=== PATIENT | male | born 1935 | race Caucasian/White ===

== ENCOUNTER 2018-10-18 11:02 | Outpatient (CLI) | payer MEDICARE, OTHER, SELFPAY ==
[2018-10-18 11:51] LABS: HGB 15.8 g/dL (13.5-17.5); Mean Corp. HGB Concentration 32.9 g/dL (32.0-36.0); Mean Corpuscular Hemoglobin 28.2 pg (27.0-33.0); Mean Corpuscular Volume 85.7 fL (80-95); Mean Platelet Volume 9.9 fL (8.0-11.0); Platelet Count 302 x1000/uL (130-400); RBC Distribution Width 13.7 % (11.8-14.1); White Blood Cell Count 7.75 k/cumm (4.4-10.8)
[2018-10-18 13:08] LABS: ALT 12 U/L (12-78); AST 18 U/L (15-37); Albumin 3.5 g/dL (3.4-5.0); Alkaline Phosphatase 157 U/L (46-116); Anion Gap 11.2 mmol/L (3-11); BUN 11 mg/dL (7-18); Bilirubin, Total 0.7 mg/dL (0.2-1.0); CO2 27.8 mmol/L (21.0-32.0); CREATININE 1.09 mg/dL (0.70-1.30); Calcium 8.8 mg/dL (8.5-10.1); Chloride 103 mmol/L (98-107); Glucose 96 mg/dL (70-100); Potassium 4.1 mmol/L (3.5-5.1); Sodium 142 mmol/L (136-145); Total Protein 6.7 g/dL (6.4-8.2)
[2018-10-18 16:49] LABS: GGT 58 U/L (15-85)
== END 2018-10-18 11:22 ==
PROVIDERS: PCP Family Medicine; Visit Provider Family Medicine
DX: F32.9 Major depressive disorder, single episode, unspecified (principal); I10 Essential (primary) hypertension; R74.8 Abnormal levels of other serum enzymes
CPT/HCPCS: 36415; 80053; 85027; 82977

== ENCOUNTER 2019-10-20 11:56 | Outpatient (CLI) | payer MEDICARE, OTHER, SELFPAY ==
[2019-10-20 13:43] LABS: ALT 10 U/L (16-63); AST 16 U/L (15-37); Albumin 3.4 g/dL (3.4-5.0); Alkaline Phosphatase 140 U/L (46-116); Anion Gap 10.7 mmol/L (3-11); BUN 16 mg/dL (7-18); Bilirubin, Total 1.1 mg/dL (0.2-1.0); CO2 27.3 mmol/L (21.0-32.0); CREATININE 1.14 mg/dL (0.70-1.30); Calcium 8.8 mg/dL (8.5-10.1); Chloride 105 mmol/L (98-107); Glucose 97 mg/dL (74-106); Potassium 4.4 mmol/L (3.5-5.1); Sodium 143 mmol/L (136-145); Total Protein 6.8 g/dL (6.4-8.2)
== END 2019-10-20 12:16 ==
PROVIDERS: PCP Family Medicine; Visit Provider Family Medicine
DX: I10 Essential (primary) hypertension (principal)
CPT/HCPCS: 36415; 80053

== ENCOUNTER 2020-05-14 12:12 | Emergency (ER) | payer MEDICARE, OTHER, SELFPAY ==
[2020-05-14 12:18] VITALS: BP 155/36; PULSE 83; RESP 18; TEMP 37.2; O2SAT 95
[2020-05-14 12:26] VITALS: RESP 18
--- NOTE | 2020-05-14 12:45 | DI.CT_ITS ---
EXAM: CT HEAD WO CLINICAL HISTORY: Mechanical fall 2 over the past 3 days,struck head. TECHNIQUE: Imaging Protocol: Axial computed tomography images with coronal and sagittal reformatted images were created and reviewed COMPARISON: CT HEAD WITHOUT CONTRAST from 11/08/2016 FINDINGS: Ventricles and Extra axial spaces: Normal in size and morphology for the patient's age. Hemorrhage: None. Cerebral parenchyma: Mild atrophy. Mild white matter changes consistent with small vessel disease. Midline shift: None. Brainstem/Cerebellum: Normal. Calvarium: Normal. Visualized Paranasal sinuses/Mastoids: There is complete opacification of the frontal and sphenoid si nuses and near complete opacification of the ethmoid sinuses. There is mucous retention in the right maxillary sinus and mild mucosal thickening of the left maxillary sinus. The mastoid air cells are clear. IMPRESSION: Severe sinus disease. No acute intercranial abnormality. RADIATION DOSE DELIVERED: 897.16mGy.cm Total DLP 897.16mGy.cm Total DLP DATA REPOSITORY: All CT scans at this facility are submitted to the National Radiology Data Registry (NRDR) Dose Index Registry (DIR) with the [employer] (A[employer]). RADIATION OPTIMIZATION: All CT scans at this facility use at least one of these dose optimization te chniques: automated exposure control; mA and/or kV adjustment per patient size (includes targeted exa ms where dose is matched to clinical indication); or iterative reconstruction.
--- NOTE | 2020-05-14 13:17 | CMPROGNOTE_ITS ---
- If Service Date Differs Date of service: 05/14/20 Time of Service: 13:17 Care Management Progress Note S/O: Roshan is an 84 year old male who lives in [place], [place], with his daughter, Merced, 6 dogs and a parakeet. He shares his daughter is a dog or horse racing official and this is the reason why they have so many dogs at home. He reports being independent with his ADLs, but he no longer drives. He states he buys the food and Merced cooks the meals. She also drives him to appointments. Roshan is retired but formerly worked 30 years in [place], [place], at the [employer]. 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 Roshan reports doing well at home and declines an offer of in-home services or the need for medical equipment, such as a walker. A: Roshan presents in the ED today after experiencing two mechanical falls at home. P: Anticipate Roshan will be discharged home when medically cleared by provider. He will follow-up with his PCP and plan of care as directed.
--- NOTE | 2020-05-14 13:28 | ED.GENADUL_ITS ---
Discharge Plan Disposition Patient Disposition: HOME Condition: Stable Discharge Details Chief Complaint: GenMedical Clinical Impression: Fall, BEA (acute kidney injury), Dehydration Primary Care Provider: Tyler Baez ED Provider: Fabricio Espino Home Meds and New Rx's Prescriptions: Continued amlodipine 10 mg tablet 10 mg PO DAILY Qty: 180 RF: 2 mirtazapine 30 mg tablet 30 mg PO HS Qty: 90 RF: 3 Discharge Instructions Instructions: Dehydration (ED), Fall Prevention (ED) Additional Instructions: At this time the work-up in the ER does not reveal any obvious emergent process. As we discussed your laboratory values do reveal that you are dehydrated however you have declined IV hydration, further observation here in the ER, repeat laboratory values. I also had our care management team talk with you regarding other home resources but you have declined their services. You do not believe you need PT, a walker, or cane. I cannot stress the importance of contacting your primary care provider later today or tomorrow for prompt outpatient reevaluation. Please increase your fluid intake. Watch for new or worsening symptoms and return to the ER for any concerns. Discharge Data Discharge Date/Time-TO BE ENTERED AT DEPARTURE: 05/14/20 15:38 Medical Decision Making This is a 84-year-old gentleman with history of mood disorder, hypertension, depression presents to the ER today reporting 2 falls over the past 3 days. Both falls were mechanical in nature, 1 was caused getting caught up in a dog leash, the other caused while trying to balance and take off his shoes. He denies any balance issues. He denies any injury from the falls. Denies head ache, loss of consciousness, visual changes, neck pain, pain in his extremities. Patient is awake, alert, able to have a normal conversation. He initially tells me that he would rather not have a work-up completed as he does not believe that there is anything wrong. Given his presentation with 2 falls both striking his head, I do believe that obtaining head CT is reasonable to rule out skull fracture and/or intracranial process. The falls did not seem to have any association with ataxia, less concern for a posterior CVA or TIA. There is not appear to be any distracting injuries. I discussed this with the patient and he is agreeable to minimally having a head CT performed. After I spoke with the patient's daughter, learning that he has had a declining cognitive state over the past few weeks, increased state of being disheveled, I would like to obtain routine laboratory values and urinalysis if the patient is agreeable. Patient is agreeable to having a CBC, CMP, urinalysis obtained. He would prefer a straight stick and not an IV. CT reveals no acute intracranial process per radiology. Laboratory values reveal a white blood cell count of 8.93 hemoglobin 12.8 hematocrit 38.8 platelet count 335. Potassium 3.3 chloride 109,, dioxide 19.9 anion gap 16.1 BUN 30, creatinine 1.42. His GFR is 47.73 which does appear to be slightly lower than his baseline. Calcium is 7.5 urinalysis reveals 80 ketones. I discussed these findings with patient. He admits that he does not drink as much as he should and will drink more but does not want an IV and wants to be discharged. He is slightly dehydrated but is able to tolerate p.o. fluids. I discussed the patient's presentation, laboratory values, with Dr. Smith. Patient is awake, alert, oriented to self, location, date, situation, able to make his own decisions. He does appear to be slightly dehydrated but in no obvious distress or acute emergent process. Obviously we cannot force the patient to receive IV fluid and if he wants to be discharged he has the capacity to do so. The patient is homebound and I do believe that he would benefit from a social services coordinator consultation as well as physical therapy and home health. I spoke with patient's daughter, Fina, prior to discharge. She understands that the patient does not want to wait in the ER any longer, does not want to receive IV fluids. She is his sole home caregiver and feels as though additional resources would be greatly beneficial. He did initially decline any additional home resources but after talking with his daughter who feels as though they would be beneficial, he is at least open to the idea. I did asked that our care management team personally reach out to her as well to see what resources may be beneficial. She will take him home in his current condition and be sure that he follows up with his primary care provider. Encouraged to return to the ER for new or worsening symptoms. Upon discharge patient was able to ambulate stebuster mccarthy. HPI General Date/Time Provider Initiated Documentation: 05/14/20 12:28 . Limitations to Documentation: no limitations . Information obtained by: patient . HPI Narrative: This is an 84-year-old gentleman with history of depression, hypertension, mood disorder, not anticoagulated, presenting for evaluation because of recent falls. He reports that 3 days ago he was outside with his dogs, got tangled up in the leashes, had a mechanical fall forward striking his forehead. Denies LOC, headache, neck pain or other injuries. Yesterday when coming in after taking his dogs outside, he was trying to balance and take off 1 of his shoes, lost his balance and fell once again striking his head. Denies injury from that fall. He reports that he lives at home with his daughter and does not believe that he needs any additional resources. He ambulates on his own without any assistive devices. He reports that the falls were mechanical and does not believe that he would require any physical therapy or assisted devices for ambulation. He is currently asymptomatic. Denies headache, visual changes, neck pain, chest pain, shortness of breath, numbness, tingling, weakness, nausea, vomiting, incontinence. The patient's daughter, Fina Sheikh, home phone number [phone]. She believes that there has been a cognitive decline over the past several weeks. And then on top of the 2 falls over the past 3 days she is concerned. She contacted his primary care provider 3 days ago after the initial fall however the patient refused to go to the ER at that time. She is his primary pooling operator. Related Data Home Medications Medication Instructions Recorded Confirmed amlodipine 10 mg tablet 10 mg PO DAILY #180 tab 11/24/19 05/14/20 mirtazapine 30 mg tablet 30 mg PO HS #90 tab-cap 12/15/19 05/14/20 Previous Rx's Medication Instructions Recorded amlodipine 10 mg tablet 10 mg PO DAILY #180 tab 11/24/19 mirtazapine 30 mg tablet 30 mg PO HS #90 tab-cap 12/15/19 Allergies Allergy/AdvReac Type Severity Reaction Status Date / Time lamotrigine [From Lamictal] Allergy Intermediate Skin Rash Unverified 05/14/20 12:26 General Stated Complaint: GenMedical BRYAN: 3 Review of Systems Constitutional Constitutional: Reports fatigue, Denies fever(s) and Denies headache(s) Eyes Eyes: Denies change in vision ENT Ears, Nose, Mouth, and Throat: Denies vertigo, Denies dizziness, Denies headache(s) and Denies neck pain Cardiovascular Cardiovascular: Denies chest pain, Denies syncope and Denies dyspnea Respiratory Respiratory: Denies dyspnea Gastrointestinal Gastrointestinal: Denies abdominal pain, Denies nausea and Denies vomiting Genitourinary Genitourinary: Denies dysuria Musculoskeletal Musculoskeletal: Denies back pain, Denies neck pain and Denies tingling Integumentary/Breasts Skin/Breast: Denies rash Neurologic Neurologic: Denies vertigo, Denies dizziness, Denies syncope, Denies headache(s) and Denies tingling Endocrine Endocrine: Reports fatigue [facility] Social History Smoking/Tobacco Use Status: Never Alcohol Intake: former Drug use: Never Substance use type: does not use Do you feel safe at home: Yes Exam Const General: cooperative, healthy appearing, comfortable, no acute distress and disheveled Orientation: alert, awake and oriented x3 HENCT Head: no palpable skull fracture, normocephalic and other (Abrasion, right forehead) Face and sinus: normal facial exam Mouth: moist mucous membranes abnormal (Slightly dry oral mucosa) Throat: posterior oropharynx normal Eyes General: appearance normal, both eyes and all related structures Alignment and Position: alignment normal Periorbital: periorbital findings normal Eyelids: eyelids normal Conjunctivae: conjunctivae normal Sclera: sclerae normal Cornea: corneas normal Pupils: PERRL EOM: EOM intact bilaterally Direct ophthalmoscopy: normal light reflex Neck Neck: normal visual inspection, full ROM, trachea midline, supple and nontender Chest Chest: normal palpation of entire chest wall Resp Effort & Inspection: normal respiratory effort and able to speak in complete sentences Auscultation: clear to auscultation bilaterally Cardio Rate: regular rate Rhythm: regular rhythm GI Inspection: normal to inspection Palpation: soft, not firm, no guarding and nontender Auscultation: normal bowel sounds Back/Spine/Pelvis Back: No back tenderness Skin General skin exam: no rashes or lesions noted Neuro General: patient alert, patient awake, patient oriented x3, moves all extremities and no focal motor deficits Cranial Nerves: CN's II-XI intact bilaterally Cognition: normal cognition Speech: speech normal Gait: normal gait Motor: muscle tone normal throughout and strength 5/5 throughout Sensory Exam: no sensory deficits noted Extrem General: full ROM, capillary refill normal, no pedal edema (1+ bilaterally, patient reports this is baseline) and no calf tenderness Psych Appearance: grossly normal Mental Status: mental status grossly normal Speech and Movement: speech and movement normal Affect: normal affect Attitude: cooperative Course Vital Signs Vital signs: Vital Signs Temperature 37.2 C 05/14/20 12:18 Pulse 83 05/14/20 12:18 Respiratory Rate 18 05/14/20 12:18 Blood Pressure 155/36 H 05/14/20 12:18 Pulse Oximetry 95 05/14/20 12:18 Temperature 37.2 C 05/14/20 12:18 Temperature Source Temporal Artery Scan 05/14/20 12:18 Pulse 83 05/14/20 12:18 Respiratory Rate 18 05/14/20 12:26 Respiratory Effort Non-Labored 05/14/20 12:26 Respiratory Depth Normal 05/14/20 12:26 Respiratory Pattern Normal 05/14/20 12:26 Blood Pressure 155/36 H 05/14/20 12:18 Blood Pressure Position Supine 05/14/20 12:18 Pulse Oximetry 95 05/14/20 12:18 Oxygen Delivery Method Room Air 05/14/20 12:18 Oxygen Flow Rate 0 05/14/20 12:18 Pain Level 0 05/14/20 12:18
[2020-05-14 14:13] LABS: Abs Immature Grans 0.03 k/cumm (0.0-0.09); Absolute Basophil Count 0.02 k/cumm (0.0-0.2); Absolute Eosinophil Count 0.14 k/cumm (0.0-0.7); Absolute Lymphocyte Count 1.44 k/cumm (1.2-3.4); Absolute Monocyte Count 0.81 k/cumm (0.11-0.7); Absolute Neutrophil Count 6.49 k/cumm (1.2-6.7); Basophils % 0.2; Eosinophils % 1.6; HCT 38.8 % (40.0-50.0); HGB 12.8 g/dL (13.5-17.5); Immature Grans % 0.3 %; Lymphocytes % 16.1; Mean Corpuscular Hemoglobin 28.5 pg (27.0-33.0); Mean Corpuscular Volume 86.4 fL (80-95); Mean Platelet Volume 10.4 fL (8.0-11.0); Monocytes % 9.1; Neutrophils % 72.7; Platelet Count 335 x1000/uL (130-400); RBC 4.49 m/cumm (4.50-6.00); White Blood Cell Count 8.93 k/cumm (4.4-10.8)
[2020-05-14 14:20] LABS: Bilirubin Negative (Negative); Blood Negative (Negative); Clarity Clear (Clear); Glucose Negative (Negative); Ketones 80 mg/dL (Negative); Leukocyte Esterase Negative (Negative); Nitrite Negative (Negative); Specific Gravity >= 1.030 (1.005-1.025); Urobilinogen 0.2 EU/dL (Up TO 0.2); pH 5.5 (5-8)
[2020-05-14 14:29] LABS: ALT 11 U/L (16-63); AST 34 U/L (15-37); Albumin 3.1 g/dL (3.4-5.0); Alkaline Phosphatase 106 U/L (46-116); Anion Gap 16.1 mmol/L (3-11); BUN 30 mg/dL (7-18); Bilirubin, Total 0.4 mg/dL (0.2-1.0); CO2 19.9 mmol/L (21.0-32.0); CREATININE 1.42 mg/dL (0.70-1.30); Calcium 7.5 mg/dL (8.5-10.1); Chloride 109 mmol/L (98-107); Estimated GFR 47.73 (mL/min/1.73m2); Glucose 84 mg/dL (74-106); Potassium 3.3 mmol/L (3.5-5.1); Sodium 145 mmol/L (136-145); Total Protein 6.3 g/dL (6.4-8.2)
== END 2020-05-14 15:38 | disposition home or self-care (01) ==
PROVIDERS: Emergency Provider Physician Assistant; PCP Family Medicine
DX: S09.90XA Unspecified injury of head, initial encounter (principal); W19.XXXA Unspecified fall, initial encounter; E86.0 Dehydration; N17.9 Acute kidney failure, unspecified; R41.81 Age-related cognitive decline; I10 Essential (primary) hypertension
CPT/HCPCS: 36415; 80053; 99284; 70450; 81003; 85025

== ENCOUNTER 2022-01-06 15:17 | Outpatient (REF) | payer MEDICARE, OTHER, SELFPAY ==
[2022-01-06 18:49] LABS: HCT 45.2 % (40.0-50.0); HGB 14.4 g/dL (13.5-17.5); MCH 27.8 pg (27.0-33.0); MCHC 31.9 % (32.0-36.0); MCV 87.3 fL (80-95); MPV 10.7 fL (8.0-11.0); Platelet Count 298 10^3/uL (130-400); RBC 5.18 10^6/uL (4.36-5.78); RDW 13.6 % (11.8-14.1); WBC 7.48 10^3/uL (4.4-10.8)
[2022-01-06 18:51] LABS: ALT 27 U/L (16-63); AST 23 U/L (15-37); Albumin 3.8 g/dL (3.4-5.0); Alkaline Phosphatase 155 U/L (46-116); BUN 19 mg/dL (7-18); Bilirubin, Total 0.8 mg/dL (0.2-1.0); CREATININE 1.1 mg/dL (0.70-1.30); Calcium 8.8 mg/dL (8.5-10.1); Chloride 107 mmol/L (98-107); Glucose 86 mg/dL (74-106); Sodium 144 mmol/L (136-145); TSH (W/Ref FT4) 2.36 uIU/mL (0.36-3.74); Total Protein 6.9 g/dL (6.4-8.2)
== END 2022-01-06 15:18 | disposition home or self-care (01) ==
LOC: LBN 15:17
PROVIDERS: PCP Family Medicine; Visit Provider Family Medicine
DX: D64.9 Anemia, unspecified (principal); F32.9 Major depressive disorder, single episode, unspecified; I10 Essential (primary) hypertension; R63.4 Abnormal weight loss
CPT/HCPCS: 80053; 85027; 84443

== ENCOUNTER 2023-03-20 11:19 | Emergency (ER) | payer MEDICARE, OTHER, SELFPAY ==
[2023-03-20 11:24] VITALS: BP 114/61; PULSE 83; RESP 14; O2SAT 97
== END 2023-03-20 14:13 | disposition left against medical advice (07) ==
LOC: ER 11:35
PROVIDERS: PCP Family Medicine
DX: S91.311A Laceration without foreign body, right foot, initial encounter (principal); Z53.21 Procedure and treatment not carried out due to patient leaving prior to being seen by health care provider

== ENCOUNTER 2023-11-15 09:53 | Emergency (ER) | payer MEDICARE, OTHER, SELFPAY ==
[2023-11-15 09:57] VITALS: BP 136/69; PULSE 91; RESP 18; TEMP 37.1; O2SAT 99
--- NOTE | 2023-11-15 10:12 | W.ED.GENAD ---
HPI General Stated Complaint: Orthopedic BRYAN: 4 Date/Time Provider Initiated Documentation: 11/15/23 09:57. Limitations to Documentation: no limitations. Information obtained by: patient. History of Present Illness left shoulder pain moderate aching left and upper extremity reports no radiation day(s) (1) constant Rest improves symptom(s), Movement worsens symptoms denies denies other symptoms none Related Data Home Medications Medication Instructions Recorded Confirmed amlodipine 10 mg tablet 10 mg PO DAILY #90 tabs 10/09/23 11/15/23 mirtazapine 30 mg tablet 30 mg PO HS #90 tab-caps 10/09/23 11/15/23 Previous Rx's Medication Instructions Recorded amlodipine 10 mg tablet 10 mg PO DAILY #90 tabs 10/09/23 mirtazapine 30 mg tablet 30 mg PO HS #90 tab-caps 10/09/23 Allergies Allergy/AdvReac Type Severity Reaction Status Date / Time lamotrigine [From Lamictal] Allergy Intermediate Skin Rash Unverified 11/15/23 09:59 Review of Systems All systems reviewed & are unremarkable except as noted in HPI and below Constitutional Constitutional: Denies chills, Denies fever(s) and Denies weakness Cardiovascular Cardiovascular: Denies chest pain and Denies dyspnea Respiratory Respiratory: Denies cough and Denies dyspnea Gastrointestinal Gastrointestinal: Denies abdominal pain, Denies nausea and Denies vomiting Integumentary/Breasts Skin/Breast: Denies rash Neurologic Neurologic: Denies weakness PFSH All Active Problems (Updated 11/15/23 @ 12:51 by Roldan Lovelace MD) Dislocation of shoulder, left, closed (Acute) Facial lesion (Acute) Heart murmur (Acute) 01/2022-systolic loudest at upper sternal border, consistent with modest left ear-patient declines further evaluation Depression (Chronic) HTN (hypertension) (Chronic) Mood disorder (Acute) Epistaxis (Acute 12/07/17) Social History (Updated 10/17/23 @ 19:09 by Enedelia Pace) Smoking/Tobacco Use Status: Never Second Hand Exposure: No Smoking risk assessment performed?: Yes Alcohol Intake: never Drug use: Never Substance use type: does not use Adopted: No Caregiver/Support person: No Foster care: No Household members: other Details: adult child Number of Children: 0 number of grandchildren: 0 Communication Needs: Hard of Hearing Education Level: other Details: PhD Do you need help understanding health information?: Never 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 Pets and animals: Yes Pets and animals: dog(s) Sexually active: No Current gender identity: male What is your relationship status?: refused to answer How often do you talk on the phone with friends or family?: never How often do you get together with friends or relatives?: never How often do you attend restorationist or spiritism services?: decline to answer Do you belong to any clubs or organized social groups?: no Panel score (0-1 are the most socially isolated patients): 0 What type of physical activity do you participate in: walking Duration: 60-90 minutes/day Frequency: daily Special kenyon needs: No Agree to transfusion: Yes Seatbelt use: always Helmet use: No Drive intox or ride w/intox [employer] company driver: No Working smoke detector in home: No Carbon monox detector in home: No Firearms in home: Yes Firearms unloaded and locked: Yes Do you feel safe at home: Yes Do you feel safe in your relationship?: Yes Victim of physical abuse: No Victim of emotional abuse: No Victim of sexual abuse: No Would you like helpful sources: No Exam Const General: no acute distress Orientation: alert HENMT Head: normal to inspection Ears: external ears normal General nose exam: external nose normal Mouth: moist mucous membranes Eyes General: appearance normal, both eyes and all related structures Neck Neck: normal visual inspection Chest Chest: no tenderness Resp Effort & Inspection: normal respiratory effort and able to speak in complete sentences Auscultation: clear to auscultation bilaterally Cardio Jugular venous pressure: no JVD Rate: regular rate GI Palpation: soft and nontender Skin General skin exam: no rashes or lesions noted Neuro General: patient alert and patient oriented x3 Extrem General: capillary refill normal Psych Mental Status: mental status grossly normal Course Vital Signs Vital signs: Vital Signs Temperature 37.1 C 11/15/23 09:57 Pulse 91 H 11/15/23 09:57 Respiratory Rate 18 11/15/23 09:57 Blood Pressure 136/69 11/15/23 09:57 Pulse Oximetry 99 11/15/23 09:57 Temperature 37.1 C 11/15/23 09:57 Temperature Source Temporal Artery Scan 11/15/23 09:57 Pulse 91 H 01/11/24 09:57 Respiratory Rate 18 11/15/23 09:57 Respiratory Effort Normal, Non-Labored 11/15/23 10:00 Blood Pressure 136/69 11/15/23 09:57 Blood Pressure Position Sitting 11/15/23 09:57 Pulse Oximetry 99 11/15/23 09:57 Oxygen Delivery Method Room Air 11/15/23 09:57 Oxygen Flow Rate 0 11/15/23 09:57 Procedures Procedural Sedation Indication: fracture/dislocation reduction ASA Class: II Time of Last PO Intake: 19:00 Preparation: machine stapler applied, pulse oximeter, capnometry used and supplemental O2 applied Fentanyl: IV Fentanyl dose (mcg): 50 IV Propofol dose (mg): 60 Patient Tolerated Procedure: well Complications: none Medical Decision Making 87 yo male with hx of htn and mood disorder who comes in with cc of left shoulder pain. HE states yesterday he was walking and slipped on ice and landed on her left shoulder. Denies loc and no preceding symptoms such as chest pain, dyspnea, dizziness. HE has pain in the left lateral shoulder since so came here. He has no signs of trauma to the head, caox4 speaking clearly. He has no midline c/t/l spine tenderness, no chest or abdomen tenderness. HE has limited rom of the shoulder due to pain and has tenderness over the anterior and lateral shoulder, no pain in the mid to distal humerus, elbow, forearm, wrist or hand with intact sensation and pulses. Suspect proximal humerus fracture will obtain xrays and reassess. No pain in the legs and bearing weight. xray shows anterior shoulder dislocation, pt stable. He consents to sedation, Dr. Chamberlain will assist. patient caox4 speaking clearly, second xray shows successful reduction. Stable for d/c, will f/u with ortho and return precautions given Differential Diagnosis Differential Diagnosis: fracture, dislocation, contusion Imaging Data Radiologic Study: Attestation: I personally reviewed and interpreted this imaging study as follows: Imaging: X-Ray My impression: anterior shoulder dislocation Radiologic Study #2: Attestation: I personally reviewed and interpreted this imaging study as follows: Imaging: X-Ray My impression: successful reduction Quality:SDOH Health Related Social Needs: No Data to Display Discharge Plan Disposition Patient Disposition: Home Condition: Stable Discharge Details Clinical Impression: Dislocation of shoulder, left, closed Primary Care Provider: Miguelito Conteh ED Provider: Roldan Lovelace [place] Meds and New Rx's Prescriptions: Continued amlodipine 10 mg tablet 10 mg PO DAILY Qty: 90 3RF mirtazapine 30 mg tablet 30 mg PO HS Qty: 90 3RF Rx Instructions: fill for #90 every 3 months Discharge Instructions Instructions: Shoulder Dislocation (ED) Additional Instructions: you had a shoulder dislocation and were given sedation to reduce it call orthopedics tomorrow to arrange for follow up if you feel more ill, have severe worsening pain or new pain such as chest pain return to the emergency department Referrals: Tony Chamberlain MD [ [facility] STAFF PHYSICIAN] -
[2023-11-15] MEDS: Acetaminophen 500 MG TAB 1000 MG PO (10:29)
--- NOTE | 2023-11-15 10:43 | DI.RAD_ITS ---
Exam(s) XR SHOULDER LT COMPLETE 2+V EXAM: XR SHOULDER LT COMPLETE 2+V CLINICAL HISTORY: pain s/p fall. TECHNIQUE: 2D digital imaging was performed. COMPARISON: No exams were available for comparison FINDINGS: 3 views There is anterior dislocation of the humeral head relative to the glenoid fossa. No obvious fracture evident. No soft tissue calcifications seen. No adjacent rib fractures. AC joint appears unremark able. IMPRESSION: Anterior dislocation of the glenohumeral joint. DATA REPOSITORY: RADIATION DOSE DELIVERED:
[2023-11-15] MEDS: Normal Saline 1,000 ML 1000 ML IV (12:05)
[2023-11-15] MEDS: fentaNYL 100 MCG/2 ML VIAL 50 MCG IVP (12:15)
--- NOTE | 2023-11-15 12:15 | DI.RAD_ITS ---
Exam(s) XR SHOULDER LT COMPLETE 2+V EXAM: XR SHOULDER LT COMPLETE 2+V CLINICAL HISTORY: s/p reduction. TECHNIQUE: 2D digital imaging was performed. COMPARISON: CR XR SHOULDER LT COMPLETE 2+V from 11/15/2023 FINDINGS: 3 views There has been successful realignment of the glenohumeral joint. No obvious fractures evident. IMPRESSION: Successful reduction. DATA REPOSITORY: RADIATION DOSE DELIVERED:
[2023-11-15 12:32] VITALS: BP 108/50; PULSE 59; RESP 30; O2SAT 98
--- NOTE | 2023-11-15 12:55 | RESPIRATORY ---
Respiratory Therapy present for conscious sedation. EtCo2, Ambu bag, suction and nasal trumpet available and connected at bedside. Procedure tolerated well. No distress noted.
[2023-11-15 13:47] LABS: Bilirubin Small (Negative); Blood Trace-intact (Negative); Clarity Clear (Clear); Glucose Negative (Negative); Ketones 40 mg/dL (Negative); Leukocyte Esterase Negative (Negative); Nitrite Negative (Negative); Specific Gravity >= 1.030 (1.005-1.025); Urobilinogen 0.2 mg/dL (Up to 0.2); pH 5.5 (5-8)
[2023-11-15 13:59] LABS: Bacteria Negative HPF (Negative); Casts 20-50 Hyaline LPF (Negative); Crystals Negative HPF (Negative); Epithelial Cells Rare HPF (Negative); Mucus Negative (Negative); RBC 0-2 HPF (0-2); WBC Negative HPF (0-5)
[2023-11-15 14:00] LABS: C & S Indicated? No
[2023-11-15 14:07] VITALS: BP 114/68; PULSE 72; TEMP 36.6; O2SAT 97
== END 2023-11-15 14:19 | disposition home or self-care (01) ==
PROVIDERS: Emergency Provider Emergency Medicine; PCP Family Medicine
DX: S43.005A Unspecified dislocation of left shoulder joint, initial encounter (principal); I10 Essential (primary) hypertension; W00.0XXA Fall on same level due to ice and snow, initial encounter; Y93.01 Activity, walking, marching and hiking; Y92.89 Other specified places as the place of occurrence of the external cause
CPT/HCPCS: 23650; 99284; 73030; 81003; 81015; J2704; J3010

== ENCOUNTER → 2023-11-27 10:20 | Outpatient (BNVA) | payer MEDICARE, OTHER, SELFPAY | PROVIDERS: PCP Family Medicine; Referring Provider Family Medicine; Visit Provider Student in an Organized Health Care Education/Training Program | DX: S43.005A Unspecified dislocation of left shoulder joint, initial encounter (principal); W00.0XXA Fall on same level due to ice and snow, initial encounter | CPT/HCPCS: 99213 ==

== ENCOUNTER 2025-01-05 15:56 | Inpatient (IN) | payer MEDICARE, OTHER, SELFPAY ==
[2025-01-05] VITALS (102 sets, daily range): BP systolic 68–149; BP diastolic 34–68; PULSE 39–94; RESP 13–701; TEMP 31.1–37.3; O2SAT 88–96
--- NOTE | 2025-01-05 16:00 | RT.EKG_ITS ---
APPROVED REPORT Exam: Resting ECG Reason for Exam: Weakness Patient Location: E HR:141 bpm ECG Measurements Heart Rate 141 AXIS NV [id number] P [id number] QRSd 69 QRS 71 QT 159 T [id number] QTc 244 Conclusion tremors not adequate EKg
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
--- NOTE | 2025-01-05 16:15 | RT.EKG_ITS ---
APPROVED REPORT Exam: Resting ECG Reason for Exam: Weakness Patient Location: E HR:53 bpm ECG Measurements Heart Rate 53 AXIS MS 83 P 231 QRSd 82 QRS 69 QT 519 T 50 QTc 489 Conclusion Ectopic atrial bradycardia...abnormal P axis, V-rate< 60 Anterior infarct, old...Q >40mS, abnormal ST-T, V2-V5 Borderline ST elevation, inferior leads...ST >0.06mV, II III aVF
[2025-01-05 16:32] LABS: HCT 38.7 % (40.0-50.0); MCH 28.2 pg (27.0-33.0); MCV 91 fL (80-95); Platelet Count 155 10^3/uL (130-400); RBC 4.25 10^6/uL (4.36-5.78); RDW 14.9 % (11.8-14.1); WBC 7.27 10^3/uL (4.4-10.8)
[2025-01-05 16:35] LABS: Lactate 2.1 mmol/L (<or=2.0)
[2025-01-05] MEDS: Normal Saline 1,000 ML 2000 ML IV (16:40)
[2025-01-05 16:42] LABS: INR 1.1 (0.9-1.1); Prothrombin Time 11.2 sec (9.1-11.1)
[2025-01-05 16:51] LABS: Absolute Lymphocyte Count 0.29 10^3/uL (1.2-3.4); Absolute Monocyte Count 0.22 10^3/uL (0.1-0.8); Absolute Neutrophil Count 6.76 10^3/uL (1.2-6.7); Anisocytosis 1+; Atypical Lymphocytes % 2 %; Bands % 2 %; Diff Comment Manual Differential
[2025-01-05 16:53] LABS: ALT 27 U/L (16-63); AST 29 U/L (15-37); Albumin 2.8 g/dL (3.4-5.0); Alkaline Phosphatase 148 U/L (46-116); Anion Gap 9.7 mmol/L (3-11); BUN 51 mg/dL (7-18); Bilirubin, Total 0.57 mg/dL (0.2-1.0); CO2 28.3 mmol/L (21.0-32.0); CREATININE 2.1 mg/dL (0.70-1.30); Calcium 9.4 mg/dL (8.5-10.1); Chloride 110 mmol/L (98-107); Glucose 129 mg/dL (74-106); Potassium 4.7 mmol/L (3.5-5.1); Sodium 148 mmol/L (136-145); Total Protein 6.5 g/dL (6.4-8.2); Troponin I 10 ng/L (<or=76)
[2025-01-05 16:59] LABS: Procalcitonin 6.25 ng/mL
--- NOTE | 2025-01-05 17:04 | DI.RAD_ITS ---
Exam(s) XR PORTABLE CHEST AP EXAM: XR PORTABLE CHEST AP CLINICAL HISTORY: dsypnea TECHNIQUE: 2D digital imaging was performed. COMPARISON: CR XR SHOULDER LT COMPLETE 2+V from 11/15/2023 FINDINGS: The exam is extremely limited by positioning. Abdominal soft tissues partially obscure the lung base s. There is poor pulmonary inflation. LUNGS: Pulmonary vascular prominence. No visible focal area of consolidation. Small right pleural e ffusion. Left pleural effusion size difficult to assess due to cardiac enlargement. HEART: Markedly enlarged. AORTA: Normal diameter. BONES: Unremarkable for age. Soft tissues: Gaseous distension of colon. IMPRESSION: Limited exam. Marked cardiomegaly. Small bilateral pleural effusions, left greater than right. DATA REPOSITORY: RADIATION DOSE DELIVERED:
[2025-01-05 17:50] LABS: Troponin I 9 ng/L (<or=76)
[2025-01-05 18:42] LABS: Creatine Kinase 52 U/L (39-308)
[2025-01-05 20:20] LABS: COVID-19 PCR Negative (Negative); Influenza A PCR Negative (Negative); Influenza B PCR Negative (Negative); RSV PCR Negative (Negative)
[2025-01-05 20:33] LABS: Source Nasopharynx
[2025-01-05] MEDS: Lidocaine 2% Jelly 11 ML SYR (20:46)
[2025-01-05 20:54] LABS: Bilirubin Negative (Negative); Blood Large (Negative); Clarity Clear (Clear); Glucose Negative (Negative); Ketones Negative (Negative); Leukocyte Esterase Negative (Negative); Nitrite Negative (Negative); Specific Gravity >= 1.030 (1.005-1.025); Urobilinogen 0.2 mg/dL (Up to 0.2)
[2025-01-05 21:05] LABS: Bacteria Rare HPF (Negative); C & S Indicated? No; Casts 0-2 Hyaline LPF (Negative); Crystals Negative HPF (Negative); Epithelial Cells Rare HPF (Negative); Mucus Trace (Negative); RBC >50 HPF (0-2); WBC 0-2 HPF (0-5)
[2025-01-05] MEDS: Normal Saline 250 ML IV (21:31)
[2025-01-05] MEDS: Normal Saline 1,000 ML 250 ML IV (21:34)
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
--- NOTE | 2025-01-05 22:53 | W.PC.ACHO ---
Registration Status: Primary Language: Preferred Language: ED Information & Data Chief Complaint AMS/LOC 01/05/25 16:19 Chief Complaint AMS/LOC 01/05/25 16:16 Triage Note BIBA d/t daughter calling 01/05/25 16:16 911 reporting pt speech is different than typical. LKW Sunday. Pt is conscious, alert and oriented. Py hypothermic on arrival, RN reports core temp 88. Most Recent Vital Signs Temperature 36.6 C 01/05/25 21:35 Temperature Source Oral 01/05/25 21:35 Pulse 70 01/05/25 22:41 Pulse 72 01/05/25 22:41 Respiratory Rate 23 01/05/25 22:41 Respiratory Effort Normal, Non-Labored 01/05/25 16:12 Blood Pressure 121/44 L 01/05/25 22:41 Blood Pressure Mean 72 01/05/25 22:41 Blood Pressure Position Supine 01/05/25 16:16 Pulse Oximetry 90 L 01/05/25 22:41 Oxygen Delivery Method Room Air 01/05/25 16:16 Oxygen Flow Rate 0 01/05/25 16:16 Pain Level 0 01/05/25 16:16 Comment MD aware 01/05/25 18:41 Allergies lamotrigine (From Lamictal) Allergy (Intermediate, Unverified 11/27/23 10:32) Skin Rash Active Medications Generic Name Dose Route Start Last Admin Trade Name Freq PRN Reason Stop Dose Admin Sodium Chloride 1,000 mls @ 250 mls/hr 01/05/25 21:30 01/05/25 21:34 Saline 250ml Bag IV 01/06/25 01:26 250 mls/hr BOLUS ONE Administration IV IV Catheter Type [Left Forearm Peripheral IV ] IV Catheter Type [Right Peripheral IV Antecubital] IV Catheter Gauge [Left 20 Forearm] IV Catheter Gauge [Right 18 Antecubital] Diagnostics 01/05/25 01/05/25 01/05/25 Range/Units 20:42 19:11 17:25 WBC (4.4-10.8) 10^3/uL RBC (4.36-5.78) 10^6/uL Hgb (13.5-17.5) g/dL Hct (40.0-50.0) % MCV (80-95) fL MCH (27.0-33.0) pg MCHC (32.0-36.0) % RDW (11.8-14.1) % Plt Count (130-400) 10^3/uL MPV (8.0-11.0) fL Immature Gran % % Neutrophils % % Band Neutrophils % % Lymphocytes % % Atypical Lymphs % % Monocytes % % Eosinophils % % Basophils % % Nucleated RBC % (0.0-0.3) % Absolute Neutrophils (1.2-6.7) 10^3/uL Absolute Lymphocytes (1.2-3.4) 10^3/uL Absolute Monocytes (0.1-0.8) 10^3/uL Absolute Eosinophils (0.0-0.7) 10^3/uL Absolute Basophils (0.0-0.2) 10^3/uL RBC Morphology Anisocytosis PT (9.1-11.1) sec INR (0.9-1.1) VBG Lactate (<or=2.0) mmol/L Sodium (136-145) mmol/L Potassium (3.5-5.1) mmol/L Chloride (98-107) mmol/L Carbon Dioxide (21.0-32.0) mmol/L Anion Gap (3-11) mmol/L BUN (7-18) mg/dL Creatinine (0.70-1.30) mg/dL Est GFR (CKD-EPI 2020) (mL/min/1.73m2) Glucose (74-106) mg/dL Calcium (8.5-10.1) mg/dL Total Bilirubin (0.2-1.0) mg/dL AST (15-37) U/L ALT (16-63) U/L Alkaline Phosphatase (46-116) U/L Creatine Kinase 52 (39-308) U/L Troponin I Cancelled 9 (<or=76) ng/L Total Protein (6.4-8.2) g/dL Albumin (3.4-5.0) g/dL Procalcitonin ng/mL Urine Color Yellow (Yellow) Urine Clarity Clear (Clear) Urine pH 5.0 (5-8) Ur Specific Pope >= 1.030 H (1.005-1.025) Urine Protein 30 H (Neg-Trace) mg/dL Urine Ketones Negative (Negative) mg/dL Urine Blood Large H (Negative) Urine Nitrite Negative (Negative) Urine Bilirubin Negative (Negative) Urine Urobilinogen 0.2 (Up to 0.2) mg/dL Ur Leukocyte Esterase Negative (Negative) Urine RBC >50 H (0-2) HPF Urine WBC 0-2 (0-5) HPF Ur Epithelial Cells Rare (Negative) HPF Urine Crystals Negative (Negative) HPF Urine Bacteria Rare (Negative) HPF Urine Casts 0-2 Hyaline (Negative) LPF Urine Mucus Trace (Negative) Ur Culture Indicated? No Urine Glucose Negative (Negative) mg/dL COVID-19 Source SARS-CoV-2 (PCR) (Negative) Influenza Type A (PCR) (Negative) Influenza Type B (PCR) (Negative) RSV (PCR) (Negative) 01/05/25 01/05/25 Range/Units 16:47 16:20 WBC 7.27 (4.4-10.8) 10^3/uL RBC 4.25 L (4.36-5.78) 10^6/uL Hgb 12.0 L (13.5-17.5) g/dL Hct 38.7 L (40.0-50.0) % MCV 91 (80-95) fL MCH 28.2 (27.0-33.0) pg MCHC 31.0 L (32.0-36.0) % RDW 14.9 H (11.8-14.1) % Plt Count 155 (130-400) 10^3/uL MPV 10.0 (8.0-11.0) fL Immature Gran % 0.0 % Neutrophils % 91.0 % Band Neutrophils % 2 % Lymphocytes % 2.0 % Atypical Lymphs % 2 % Monocytes % 3.0 % Eosinophils % 0.0 % Basophils % 0.0 % Nucleated RBC % 0.0 (0.0-0.3) % Absolute Neutrophils 6.76 H (1.2-6.7) 10^3/uL Absolute Lymphocytes 0.29 L (1.2-3.4) 10^3/uL Absolute Monocytes 0.22 (0.1-0.8) 10^3/uL Absolute Eosinophils 0.00 (0.0-0.7) 10^3/uL Absolute Basophils 0.00 (0.0-0.2) 10^3/uL RBC Morphology See Below Anisocytosis 1+ PT 11.2 H (9.1-11.1) sec INR 1.1 (0.9-1.1) VBG Lactate 2.1 (<or=2.0) mmol/L Sodium 148 H (136-145) mmol/L Potassium 4.7 (3.5-5.1) mmol/L Chloride 110 H (98-107) mmol/L Carbon Dioxide 28.3 (21.0-32.0) mmol/L Anion Gap 9.7 (3-11) mmol/L BUN 51 H (7-18) mg/dL Creatinine 2.1 H (0.70-1.30) mg/dL Est GFR (CKD-EPI 2020) 29.90 (mL/min/1.73m2) Glucose 129 H (74-106) mg/dL Calcium 9.4 (8.5-10.1) mg/dL Total Bilirubin 0.57 (0.2-1.0) mg/dL AST 29 (15-37) U/L ALT 27 (16-63) U/L Alkaline Phosphatase 148 H (46-116) U/L Creatine Kinase (39-308) U/L Troponin I 10 (<or=76) ng/L Total Protein 6.5 (6.4-8.2) g/dL Albumin 2.8 L (3.4-5.0) g/dL Procalcitonin 6.25 ng/mL Urine Color (Yellow) Urine Clarity (Clear) Urine pH (5-8) Ur Specific Pope (1.005-1.025) Urine Protein (Neg-Trace) mg/dL Urine Ketones (Negative) mg/dL Urine Blood (Negative) Urine Nitrite (Negative) Urine Bilirubin (Negative) Urine Urobilinogen (Up to 0.2) mg/dL Ur Leukocyte Esterase (Negative) Urine RBC (0-2) HPF Urine WBC (0-5) HPF Ur Epithelial Cells (Negative) HPF Urine Crystals (Negative) HPF Urine Bacteria (Negative) HPF Urine Casts (Negative) LPF Urine Mucus (Negative) Ur Culture Indicated? Urine Glucose (Negative) mg/dL COVID-19 Source Nasopharynx SARS-CoV-2 (PCR) Negative (Negative) Influenza Type A (PCR) Negative (Negative) Influenza Type B (PCR) Negative (Negative) RSV (PCR) Negative (Negative) 01/05/25 17:10 Blood Culture - Pending Blood 01/05/25 16:20 Blood Culture - Pending Blood Intake and Output - 24 Hour Total 01/05/25 15:48 thru 01/05/25 21:33 Intake Total 1000 Balance 1000 Weight 67 kg Intake: IV 1000 Falls Risk Assessment History of Falls Previous History 01/05/25 17:39 Contributing Factors Confusion,Unstable, 01/05/25 17:39 Impairments,Incontinence Ambulatory Aids Independent 01/05/25 17:39 Tubes/Lines None 01/05/25 17:39 Gait Evaluation W/no contributing factors 01/05/25 17:39 Cognition No cognitive impairment 01/05/25 17:39 Fall Total Score 37 01/05/25 17:39 Level of Risk Moderate Risk 01/05/25 17:39 Problems (Last Reviewed 01/05/25 @ 22:06 by Yuriy Wolfe MD) Hypovolemia (Acute) Hypothermia (Acute) Acute renal failure (Acute) v v v v v v v v v Sending and/or Receiving Nurses: Please use comment section below to note any information pertinent to the patient hand-off not included above. Information / Comments: brought in by [facility] for AMS, hypotension, hypothermia. Per the daughter, pt had halluciations the night prior, and has not been eating. On arrival, core temp was 92. BLE very swollen and red. Pt was found in urine and feces, scrubbed to clean but has not all come off yet. Pt does not ambulate. stays in chair at home. Abdomen firm and distended. Awake and alert. Hypotension has been resolved. O2sats low, 88-89% while sleeping. Still using bear hugger, last temp 97. BEA-labs IVS: 20 LFA, 18 RAC. NS running at 250mls/hr zimmerman- 16 coude- 100mls output Report received from: lakisha @ [id number]
[2025-01-06] VITALS (32 sets, daily range): BP systolic 95–138; BP diastolic 49–70; PULSE 59–76; RESP 16–27; TEMP 37–37.3; O2SAT 2–96
--- NOTE | 2025-01-06 | DI.CT_ITS ---
Exam(s) CT CHEST/ABD/PEL WO EXAM: CT CHEST/ABD/PEL WO CLINICAL HISTORY: hypoxia, abdomimal distention, renal failure. TECHNIQUE: Imaging Protocol: Axial computed tomography images with coronal and sagittal reformatted images were created and reviewed CONTRAST MATERIAL: Intravenous: none Oral: None COMPARISON: CR XR PORTABLE CHEST AP from 01/05/2025 FINDINGS: CHEST: LUNGS: There are large bilateral pleural effusions and significant volume loss-collapse of both lower lobes, this related to the large pleural effusions. Right upper lobe and right middle lobes are aer ated as is most of the left upper lobe and lingular segment. There appears to be some infiltrate on the left. MEDIASTINUM: No obvious hilar nor mediastinal adenopathy. CARDIAC: There is a very large pericardial effusion with thickness of slightly over 4 cm at the level of the apex.There is otherwise mild cardiomegaly. Diameter of the thoracic aorta is within normal l imits. OSSEOUS: No significant osseous lesions.No fractures. ABDOMEN: There is symmetrical anasarca. There is also a large amount of ascites in the abdomen and pelvis. LIVER: There are no obvious focal hepatic lesions evident of this noninfused study. GALLBLADDER/BILIARY: Large gallstone is noted in the gallbladder lumen. Gallbladder is not overly di stended. CBD is not dilated. PANCREAS: There cystic lesions in the pancreas. One of these measures 1.2 x 1.2 cm and is located at the body level. The other is slightly larger measuring 1.8 x 1.5 cm and appears partially exophytic off the superior aspect of the pancreatic body. SPLEEN: Spleen size is upper normal-minimally prominent. There are no obvious lesions in the spleen on this noninfused study. ADRENALS: There are no significant adrenal masses. KIDNEYS: There are 2 nonobstructive calculi in the right kidney measuring 5 and 4 mm. No hydronephro sis. No concerning masses in the right kidney. There are no calculi in the left kidney nor concerni ng masses nor cysts evident on this non few study. No hydronephrosis seen.. There is a Lyon cathet er in place. However the balloon of this catheter appears to be in the upper prostatic urethra ABDOMINAL AORTA: Calcified but not enlarged. LYMPH NODES: There is no retroperitoneal nor para-aortic adenopathy. ABDOMINAL WALL/GI: No evidence of significant anterior abdominal wall nor inguinal hernia. Stomach is distended. Proximal small bowel loops are not distended. The colon is air-filled and dis tended. No obvious pneumatosis. There also multiple fluid-filled but nondilated small bowel loops. PELVIS: LYMPH NODES: There is no intrapelvic nor inguinal adenopathy. GI: Appendix is not identified.No evidence of sigmoid diverticulitis. URINARY BLADDER: Lyon catheter needs to be advanced, as described above REPRODUCTIVE: . mildly prominent prostate OSSEOUS: No significant osseous lesions. No fractures. IMPRESSION: 1. Large bilateral pleural effusions with significant volume loss in both lower lobes because of thes e large bilateral pleural effusions. 2. Very large pericardial effusion with thickness up to 4.5 cm. 3. Anasarca and there is also abundant ascites in the abdomen and pelvis 4. Cholelithiasis. Difficult to determine if there is cholelithiasis because of the amount of fluid around the gallbladder/generalized ascites. The CBD is not obviously dilated. 5. Nephrolithiasis right kidney without hydronephrosis. There is a Lyon catheter in place but it n eeds to be advanced further into the urinary bladder. 6. Dilated air-filled colon. Mitosis. No obvious small bowel obstruction. Other findings as above. RADIATION DOSE DELIVERED: 855.98mGy.cm Total DLP DATA REPOSITORY: All CT scans at this facility are submitted to the National Radiology Data Registry (NRDR) Dose Index Registry (DIR) with the [employer] (ACR). RADIATION OPTIMIZATION: All CT scans at this facility use at least one of these dose optimization te chniques: automated exposure control; mA and/or kV adjustment per patient size (includes targeted exa ms where dose is matched to clinical indication); or iterative reconstruction.
--- NOTE | 2025-01-06 | DI.CT_ITS ---
Exam(s) CT HEAD WO EXAM: CT HEAD WO CLINICAL HISTORY: remote history of CVA, subtle right weakness. TECHNIQUE: Imaging Protocol: Axial computed tomography images with coronal and sagittal reformatted images were created and reviewed COMPARISON: CT CT HEAD WO from 05/14/2020 FINDINGS: There are no skull fractures. There is mucosal thickening and there is no fluid level in the right ma xillary sinus. There is mucosal thickening but no fluid level in left maxillary sinus. Ethmoidal ai r cells are opacified bilaterally as are the frontal sinuses completely opacified although this was a lso present on CT scan of May 2020. There is some mucosal thickening in the sphenoid sinuses althou gh less than previous. There is no evidence of intracranial hemorrhage, mass effect, or shift of midline structures. There are no extra-axial fluid collections. The ventricles are not enlarged or shifted and there is no blo od within the ventricular system nor within the basal cisterns. Left side lacunar infarcts in the left basal ganglia and anterior limb of the left internal capsule a nd left caudate appear unchanged from 2020. There is no new territorial infarction. IMPRESSION: No acute intracranial findings on this noninfused CT scan of the brain. Left-sided lacunar infarcts are unchanged from CT scan of May 2020. Chronic multilevel sinusitis with superimposed acute right maxillary sinusitis. Findings discussed by phone with the hospitalist 01/06/2025 at 12:05 p.m. RADIATION DOSE DELIVERED: 857.45mGy.cm Total DLP DATA REPOSITORY: All CT scans at this facility are submitted to the National Radiology Data Registry (NRDR) Dose Index Registry (DIR) with the [employer] (ACR). RADIATION OPTIMIZATION: All CT scans at this facility use at least one of these dose optimization te chniques: automated exposure control; mA and/or kV adjustment per patient size (includes targeted exa ms where dose is matched to clinical indication); or iterative reconstruction.
--- NOTE | 2025-01-06 | DI.RAD_ITS ---
Exam(s) XR CHEST 2V PA LATERAL EXAM: XR CHEST 2V PA LATERAL CLINICAL HISTORY: Pleural effustions, Cardiomegaly on portable 1view. TECHNIQUE: 2D digital imaging was performed. COMPARISON: CR XR PORTABLE CHEST AP from 01/05/2025 FINDINGS: 2 views: Again noted is globular cardiomegaly. This brings up the possibility of pericardial effusion. Media stinum is not widened. There is infiltrate in the left lower lobe a lesser amount of infiltrate in the right lower lobe. Th ere is a moderate size left pleural effusion. IMPRESSION: As above. Recommend chest CT scan to determine if there is a pericardial effusion as well as for add ed specificity with respect of the lung vazquez DATA REPOSITORY: RADIATION DOSE DELIVERED:
[2025-01-06] MEDS: Normal Saline 1,000 ML 75 ML IV (06:20)
[2025-01-06 07:15] LABS: HCT 32.4 % (40.0-50.0); MCH 27.9 pg (27.0-33.0); MCHC 30.9 % (32.0-36.0); MCV 90 fL (80-95); MPV 10.6 fL (8.0-11.0); Platelet Count 150 10^3/uL (130-400); RBC 3.59 10^6/uL (4.36-5.78); RDW 14.9 % (11.8-14.1); WBC 5.95 10^3/uL (4.4-10.8)
[2025-01-06 07:33] LABS: Anion Gap 10.2 mmol/L (3-11); BUN 48 mg/dL (7-18); CO2 26.8 mmol/L (21.0-32.0); CREATININE 2.1 mg/dL (0.70-1.30); Calcium 8.6 mg/dL (8.5-10.1); Chloride 113 mmol/L (98-107); Glucose 82 mg/dL (74-106); Potassium 4.4 mmol/L (3.5-5.1); Sodium 150 mmol/L (136-145)
[2025-01-06] MEDS: Normal Saline Flush 10 ML SYR IVP ×4 (08:14→22:56)
[2025-01-06] MEDS: Enoxaparin 30 MG/0.3 ML SYR SC (08:52)
[2025-01-06] MEDS: amLODIPine 10 MG TAB PO (08:52)
--- NOTE | 2025-01-06 09:28 | INITIAL_ITS ---
Date of service: 01/06/25 Time of Service: 09:28 Care Management Initial Assmt Initial Assessment Reason for Hospitalization: hypovolemia Functional Status/Living Situation Patient Presentation: Kt was sitting up in bed when CM met with him. He was polite and agreeable to conversation. Kt was admitted yesterday with hypothermia and BEA. Per the ED record, he was found by EMS soiled with stool and urine in a home without heat. CM asked about his living situation and he stated that he lives in a single family home with his adult daughter Merced. He assured CM that the house has heat (electric) and electricity. He stated that they have enough food to eat and adequate transportation. Although his daughter is challenged with back pain, he stated that she does drive and has a car and will transport him wherever he needs to go. CM attempted to reach Merced but the call went starlight to voice mail and the mailbox is full. Kt informed CM that he had been pretty independent until some time in December, around his birthday which is [birth year]. He stated that he got sick and has gotten progressively weaker. CM asked if he would be willing to go to rehab if recommended by PT and he said he would. His preference would be to go to a facility close to home, such as [facility] or [facility]. 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[employer]) Instrumental Activities of Daily Living (ADLs): Requires support with Dishes/food prep (daughter provides assistance), Groceries and Transportation Medications Medication Management: No Issues/Barriers identified Physical Functioning/Mobility Assistive Device: none Advance Directives Advance Directives: Do you have an Advance Directive: N 12/07/17 13:41 AD On File at [facility]: N 11/08/16 10:58 Date Asked 01/05/25 01/05/25 16:01 AD Date Reviewed COLST On File at [facility] COLST Date Scanned Code Status Resuscitation Status Full Code Portal Pt does not currently have a portal and education provided: No Insurance Coverage/Financial Issues Insurance: Medicare Mail Handlers Benefit Plan Care Team Visit Care Team Role Provider Type Tonny Miller MD [facility] STAFF PHYSICIAN Miguelito Conteh MD Primary Care Provider [facility] STAFF PHYSICIAN Anabella Mckeon Other Providers DIE ATTACHING MACHINE TENDER Lori Charlton Other Providers DIE ATTACHING MACHINE TENDER Lorri Aguilar Other Providers DIE ATTACHING MACHINE TENDER Gissell Lan RN Other Providers DIE ATTACHING MACHINE TENDER Migel Chapa MD Emergency Provider [facility] STAFF PHYSICIAN Yuriy Wolfe MD Admit Provider [facility] STAFF PHYSICIAN Attending Provider Discharge Potential Discharge Needs: PCP F/U Appt Anticipated Barriers to Discharge: SDOH (possibly an unsafe living situation) Patient/Family Education Needs: Review discharge instructions, discuss Ask Me Three Transportation: Private vehicle Plan: Roshan's discharge plan is unclear at this time. There were some concerns raised about his home situation however Kt assures CM that he has heat, stephen ctricity, food and transportation. He will likely be either discharged home with services or will be transferred to a SNF for short term rehab. CM will follow and continue to assess for discharge planning issues. Social Determinants of Health Screening Will the Patient Participate in the Screening?: Unable to obtain Problems where you live: other In the past 12 months, have you had to go without electric, gas, oil or water in your home?: yes Health Related Social Needs Health related social needs: inadequate housing (Z59.1) and material hardship(utilities) (Z59.12) PFSH All Active Problems (Updated 01/06/25 @ 12:02 by Tonny Miller) Venous stasis dermatitis of both lower extremities (Acute) DVT prophylaxis (Acute) Hypernatremia (Acute) Hypoxemia (Acute) BPH (benign prostatic hyperplasia) (Chronic) Hypovolemia (Acute) Hypothermia (Acute) Acute renal failure (Acute) Facial lesion (Acute) Heart murmur (Acute) 01/2022-systolic loudest at upper sternal border, consistent with modest left ear-patient declines further evaluation Depression (Chronic) HTN (hypertension) (Chronic) Mood disorder (Acute) Epistaxis (Acute 12/07/17) Social History (Updated 01/06/25 @ 05:36 by Yuriy Wolfe MD) Smoking/Tobacco Use Status: Never Second Hand Exposure: No Smoking risk assessment performed?: Yes Alcohol Intake: never Drug use: Never Substance use type: does not use Adopted: No Caregiver/Support person: No Foster care: No Household members: other Details: adult child Housing: house Number of Children: 0 number of grandchildren: 0 Communication Needs: Hard of Hearing Education Level: other Details: PhD Do you need help understanding health information?: Never current occupation: Retired Vessel [employer] Pets and animals: Yes Pets and animals: dog(s) Sexually active: No Current gender identity: male What is your relationship status?: refused to answer How often do you talk on the phone with friends or family?: never How often do you get together with friends or relatives?: never How often do you attend jehovah's witness or buddhism services?: decline to answer Do you belong to any clubs or organized social groups?: no Panel score (0-1 are the most socially isolated patients): 0 What type of physical activity do you participate in: walking Duration: 60-90 minutes/day Frequency: daily Special kenyon needs: No Agree to transfusion: Yes Seatbelt use: always Helmet use: No Drive intox or ride w/intox school bus driver/custodian: No Working smoke detector in home: No Carbon monox detector in home: No Firearms in home: Yes Firearms unloaded and locked: Yes Do you feel safe at home: Yes Do you feel safe in your relationship?: Yes Victim of physical abuse: No Victim of emotional abuse: No Victim of sexual abuse: No Would you like helpful sources: No Additional Social history: Pt denied every having any surgeries.
--- NOTE | 2025-01-06 11:40 | W.PM.PROGNOT ---
Date of Service Date of service: 01/06/25 Time of Service: 11:40 Assessment and Plan Assessment and plan (1) Hypoxemia: Status: Acute Assessment and plan: #88% on initial presenation. -Etiology unclear initially, plearal effusion and concern for pericardial effusion on repeat CXR, echo ordered, will get POCUS if we can't do this right away. -Requiring O2 NC to keep sats >90% -Recheck 2v CXR in the morning for better visualization. (2) Hypovolemia: Status: Acute Assessment and plan: # Associated with hypotension to 80/40, resolved with IV fluids. Could be hypovolemia but also could be restrictive physiology from pericardial effusion responding to increased preload. Need echo. (3) Hypothermia: Status: Acute Assessment and plan: #Due to not having heat in his house -Treated with Sommer hugger. -Now normothermic, monitor. I don't see clear acute infection. (4) Acute renal failure: Status: Acute Assessment and plan: #Acute vs chronic, last labs are from 3 years ago - Suspected pre-renal azotemia on admission but not improving with hydration. - Lyon placed, no clear diuresis to suggest bladder outlet obstruction. - with abdominal distention I would like imaging, u/s vs non-contrast CT (5) BPH (benign prostatic hyperplasia): Status: Chronic Assessment and plan: #Required coud? for Lyon placement. -Urinary retention with obstructive component suspected but not clearly documented as above -Suspect hematuria secondary to traumatic instrumentation required for Lyon placement. (6) Hypernatremia: Status: Acute Assessment and plan: appears he didn't have access to fluids recently. Stop NS. He is drinking. (7) Venous stasis dermatitis of both lower extremities: Status: Acute Assessment and plan: wound care (8) DVT prophylaxis: Status: Acute Assessment and plan: enoxaparin Subjective Subjective Patient reports: no new complaints and shortness of breath; denies nausea, vomiting or fever Interval history since last seen: He feels okay this morning. He denies any focal weakness or numbness, acute vision change, swallowing problems, headache, neck pain. Voice hasn't changed, but has more of a stutter at times. He denies an event where anything suddenly changed, he doesn't think he had a stroke. He usually doesn't need oxygen. Exam Narrative Exam Narrative: GEN: alert and oriented x 3, NAD Lungs: Diminished left base, but otherwise clear CV: bradycardic but regular. +3/6 murmur to neck abd: +BS, distended and mildly firm but not tender. no fluid wave palpable. ext: 3+ edwige edema with venous stasis changes in both lower legs neuro: CN intact except right eye slower to track, says has a cataract. Strength testing with slight relative weakness on flex/ext right arm at elbow vs left. sensation intact. DTRs symmetric. no pronator drift Objective Last Vital Signs Temp 37.1 C 01/06/25 11:07 Pulse 62 01/06/25 11:07 Resp 20 01/06/25 11:07 BP 121/53 L 01/06/25 11:07 Pulse Ox 2 L 01/06/25 11:07 Laboratory Results - last 24 hr 01/05/25 01/05/25 01/05/25 16:20 16:47 17:25 WBC 7.27 RBC 4.25 L Hgb 12.0 L Hct 38.7 L MCV 91 MCH 28.2 MCHC 31.0 L RDW 14.9 H Plt Count 155 MPV 10.0 Immature Gran % 0.0 Neutrophils % 91.0 Band Neutrophils % 2 Lymphocytes % 2.0 Atypical Lymphs % 2 Monocytes % 3.0 Eosinophils % 0.0 Basophils % 0.0 Nucleated RBC % 0.0 Absolute Neutrophils 6.76 H Absolute Lymphocytes 0.29 L Absolute Monocytes 0.22 Absolute Eosinophils 0.00 Absolute Basophils 0.00 RBC Morphology See Below Anisocytosis 1+ PT 11.2 H INR 1.1 VBG Lactate 2.1 Sodium 148 H Potassium 4.7 Chloride 110 H Carbon Dioxide 28.3 Anion Gap 9.7 BUN 51 H Creatinine 2.1 H Est GFR (CKD-EPI 2020) 29.90 Glucose 129 H Calcium 9.4 Total Bilirubin 0.57 AST 29 ALT 27 Alkaline Phosphatase 148 H Creatine Kinase 52 Troponin I 10 9 Total Protein 6.5 Albumin 2.8 L Procalcitonin 6.25 Urine Color Urine Clarity Urine pH Ur Specific [place] Urine Protein Urine Ketones Urine Blood Urine Nitrite Urine Bilirubin Urine Urobilinogen Ur Leukocyte Esterase Urine RBC Urine WBC Ur Epithelial Cells Urine Crystals Urine Bacteria Urine Casts Urine Mucus Ur Culture Indicated? Urine Glucose COVID-19 Source Nasopharynx SARS-CoV-2 (PCR) Negative Influenza Type A (PCR) Negative Influenza Type B (PCR) Negative RSV (PCR) Negative 01/05/25 01/05/25 01/06/25 19:11 20:42 06:25 WBC 5.95 RBC 3.59 L Hgb 10.0 L D Hct 32.4 L MCV 90 MCH 27.9 MCHC 30.9 L RDW 14.9 H Plt Count 150 MPV 10.6 Immature Gran % Neutrophils % Band Neutrophils % Lymphocytes % Atypical Lymphs % Monocytes % Eosinophils % Basophils % Nucleated RBC % Absolute Neutrophils Absolute Lymphocytes Absolute Monocytes Absolute Eosinophils Absolute Basophils RBC Morphology Anisocytosis PT INR VBG Lactate Sodium 150 H Potassium 4.4 Chloride 113 H Carbon Dioxide 26.8 Anion Gap 10.2 BUN 48 H Creatinine 2.1 H Est GFR (CKD-EPI 2020) 29.90 Glucose 82 Calcium 8.6 Total Bilirubin AST ALT Alkaline Phosphatase Creatine Kinase Troponin I Cancelled Total Protein Albumin Procalcitonin Urine Color Yellow Urine Clarity Clear Urine pH 5.0 Ur Specific [place] >= 1.030 H Urine Protein 30 H Urine Ketones Negative Urine Blood Large H Urine Nitrite Negative Urine Bilirubin Negative Urine Urobilinogen 0.2 Ur Leukocyte Esterase Negative Urine RBC >50 H Urine WBC 0-2 Ur Epithelial Cells Rare Urine Crystals Negative Urine Bacteria Rare Urine Casts 0-2 Hyaline Urine Mucus Trace Ur Culture Indicated? No Urine Glucose Negative COVID-19 Source SARS-CoV-2 (PCR) Influenza Type A (PCR) Influenza Type B (PCR) RSV (PCR) Time Spent with Patient Time Spent with Patient: >50 minutes Time was spent: preparing to see the patient(eg.review tests), obtaining and/or reviewing separately otained hiistory, ordering medications,tests, procedures, referring, communicating with other health hospice care sales consultant, indepentently interpreting results, counseling the patient and care coordination
--- NOTE | 2025-01-06 13:51 | PHA.REVIEW2 ---
Pharmacy Admission Review Admission Clinical Review Admission Pharmacy Review: Venous stasis dermatitis of both lower extremities (Acute) DVT prophylaxis (Acute) Hypernatremia (Acute) Hypoxemia (Acute) Hypovolemia (Acute) Hypothermia (Acute) Acute renal failure (Acute) lamotrigine (From Lamictal) Allergy (Intermediate, Unverified 11/27/23 10:32) Skin Rash Resuscitation Status Full Code Height 5 ft 4 in Weight 66 kg Comments Comments/Follow Ups: blood cultures pending, per ortho consult treating working on pain control - currently non-operative. Pharmacy Admission Review Renal Dosing Renal Dosing: BUN 48 mg/dL (7-18) H 01/06/25 06:25 Creatinine 2.1 mg/dL (0.70-1.30) H 01/06/25 06:25 Medications needing adjustments: Reviewed (CrCl 23 mL/min, BUN decreased from 51) List of meds needing interventions: Current medications are okay Anticoagulation Anticoagulation: Hgb 10.0 g/dL (13.5-17.5) L D 01/06/25 06:25 Hct 32.4 % (40.0-50.0) L 01/06/25 06:25 Plt Count 150 10^3/uL (130-400) 01/06/25 06:25 INR 1.1 (0.9-1.1) 01/05/25 16:20 Creatinine 2.1 mg/dL (0.70-1.30) H 01/06/25 06:25 DVT Prophylaxis: Reviewed (hgb decreased from 12) Medications: Enoxaparin (30mg daily - CrCl < 30) Relevant Labs Relevant Labs: Sodium 150 mmol/L (136-145) H 01/06/25 06:25 Potassium 4.4 mmol/L (3.5-5.1) 01/06/25 06:25 Chloride 113 mmol/L (98-107) H 01/06/25 06:25 Electrolytes, C-Reactive P, ESR: Reviewed (Na increased from 148) Cardiac Review Cardiac Review: Troponin I Cancelled 01/05/25 19:11 Blood Pressure 121/53 1107 Blood Pressure 125/53 0734 Blood Pressure 138/56 0321 BP, HR, EF%: Reviewed (BP WNL, currently on oxygen flow rate 2) List meds needing interventions: Has order for amlodipine 10mg daily - confirmed with provider during morning meeting that they do want this order active (was having some hypotension but per provider seems okay now) QTc Review QTc: Reviewed (489 from 01/05/25) IV to PO Switch IV Medications: Reviewed Home Meds Home Med List reviewed: Reviewed Current Meds Current Medication Order Review: Reviewed Pharmacy Antibiotic Review Relevant Labs: Relevant Labs 01/05/25 16:20 Procalcitonin 6.25 Comments Comments/Follow Ups: blood cultures pending, per ortho consult treating working on pain control - currently non-operative.
[2025-01-06] MEDS: Mirtazapine 15 MG TAB 30 MG PO (22:37)
[2025-01-06 22:40] LABS: COMMENT (LAB VIEW ONLY) 115.34 mg/dL; PROTEIN 129.1 mg/dL; Prot/Crea Ur Ratio 1.11
[2025-01-07] VITALS (23 sets, daily range): BP systolic 94–121; BP diastolic 46–91; PULSE 67–77; RESP 17–27; TEMP 36.2–37.3; O2SAT 84–98
[2025-01-07 07:08] LABS: Abs Immature Grans 0.03 10^3/uL (0.0-0.06); Absolute Basophil Count 0.01 10^3/uL (0.0-0.2); Absolute Lymphocyte Count 0.83 10^3/uL (1.2-3.4); Absolute Monocyte Count 0.82 10^3/uL (0.1-0.8); Absolute Neutrophil Count 6.08 10^3/uL (1.2-6.7); Basophils % 0.1 %; HCT 33.8 % (40.0-50.0); HGB 10.6 g/dL (13.5-17.5); Immature Grans % 0.4 %; Lymphocytes % 10.7 %; MCHC 31.4 % (32.0-36.0); MCV 89 fL (80-95); MPV 10.9 fL (8.0-11.0); Monocytes % 10.6 %; Neutrophils % 78.2 %; Platelet Count 142 10^3/uL (130-400); RBC 3.78 10^6/uL (4.36-5.78); RDW 14.9 % (11.8-14.1); RDW-SD 48.2 fL; WBC 7.77 10^3/uL (4.4-10.8)
[2025-01-07 07:29] LABS: ALT 19 U/L (16-63); AST 22 U/L (15-37); Albumin 2.3 g/dL (3.4-5.0); Alkaline Phosphatase 143 U/L (46-116); Anion Gap 9.7 mmol/L (3-11); BUN 54 mg/dL (7-18); Bilirubin, Total 0.54 mg/dL (0.2-1.0); CO2 25.3 mmol/L (21.0-32.0); CREATININE 2.2 mg/dL (0.70-1.30); Calcium 8.7 mg/dL (8.5-10.1); Chloride 113 mmol/L (98-107); Diff Comment Agrees w/ Instrument; Estimated GFR 28.28 (mL/min/1.73m2); Glucose 109 mg/dL (74-106); Potassium 4.6 mmol/L (3.5-5.1); RBC Morphology Normal; Sodium 148 mmol/L (136-145); Total Protein 5.9 g/dL (6.4-8.2)
[2025-01-07] MEDS: Enoxaparin 30 MG/0.3 ML SYR SC (07:55)
[2025-01-07] MEDS: Normal Saline Flush 10 ML SYR IVP ×2 (07:59→22:00)
--- NOTE | 2025-01-07 08:33 | W.SURGCON ---
Date of service: 01/07/25 Time of Service: 08:33 Assessment and Plan Assessment and plan (1) Tense ascites: Status: Acute Assessment and plan: Roshan does have bilateral pleural effusions, as well as a significant amount of ascites that would be easy targets for thoracentesis and paracentesis. Unfortunately, his mental status precludes any meaningful conversations today, although it sounds like this waxes and wanes quite a bit. He does have a mild oxygen requirement by way of nasal cannula, but he does not seem to be in any obvious respiratory distress. Nor are there any clinical features that would support a diagnosis of spontaneous bacterial peritonitis. In that regards, I do not see any emergent indications for paracentesis or thoracentesis. There is probably still some diagnostic value to those tests however. At this point, it seems like the pericardial effusion is the most likely unifying diagnosis. With impaired right-sided filling, it is very plausible that he would develop secondary pleural effusions, and based on the appearance of his liver on the CT scan, I suspect there is a cirrhosis element here as well which is a clear set up for his ascites. Having said that, I do not have a good explanation as to why he would have a pericardial effusion. A primary malignancy with resultant malignant pericardial and pleural effusions, as well as ascites would also make sense clinically. Therefore, there does still seem to be value to those test. For now, and like to see how he responds over the next 24 hours, and try to reassess any symptomatology that would help direct 1 procedure over another. If his mental status does not improve such that he could help guide therapy, or provide consent, the will need to speak with Merced and discussed the risks and the benefits in more detail. History of Present Illness History of Present Illness Chief Complaint: Ascites, pleural effusion, pericardial effusion Narrative: Roshan is 89 years old. Comes to the emergency department with fire rescue after his daughter called 911 because of changing mental status and slurred speech. In the emergency department, he had acute kidney injury. He underwent a CT scan that demonstrated large bilateral pleural effusions, pericardial effusion, and massive ascites. Other abnormalities at the time of admission were some mild hypernatremia, and elevation of his alkaline phosphatase (which was previously elevated as well). He was hypoalbuminemic at 2.8 g/dL he underwent a CT of his head that showed no acute intracranial findings, but some old left-sided lacunar infarcts that were consistent with imaging seen in 2019. 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 He was also hypothermic. I was asked to see him today for consideration of paracentesis or thoracentesis. On my arrival, he is in the intensive care unit, and is not able to answer any questions, or provide any meaningful history. He is disoriented to person place and time. The rest of the history was obtained from his daughter Merced on the telephone. She tells me that he was in his usual state of health up until about 2 weeks ago. Then, she noticed he had some difficulty with ambulation, in her words, he appeared drunk (although he is never consumed any alcohol). She described unsteadiness on his feet, but otherwise no focal deficits. He became increasingly withdrawn over the next 2 weeks, hiding some meals, and on Sunday, she had concerns about slurred speech, and hallucinations, which prompted the call to 911. Merced tells me that Roshan's only medical relevant history includes a stroke over 30 years ago, and longstanding mental illness. It sounds like bipolar disorder is the most cohesive diagnosis. He is required multiple inpatient psychiatric hospitalizations through his life. More recently, it has been difficult caring for him at home. He is resistant to multiple forms of basic hygiene and self-care. She tells me has had longstanding bilateral lower extremity edema that is never been formally diagnosed. Review of Systems Narrative: I am unable to obtain a meaningful review of systems based on his mental status. PFSH All Active Problems (Updated 01/07/25 @ 17:11 by Enrique Joel MD) Tense ascites (Acute) Venous stasis dermatitis of both lower extremities (Acute) DVT prophylaxis (Acute) Hypernatremia (Acute) Hypoxemia (Acute) BPH (benign prostatic hyperplasia) (Chronic) Hypovolemia (Acute) Hypothermia (Acute) Acute renal failure (Acute) Facial lesion (Acute) Heart murmur (Acute) 01/2022-systolic loudest at upper sternal border, consistent with modest left ear-patient declines further evaluation Depression (Chronic) HTN (hypertension) (Chronic) Mood disorder (Acute) Epistaxis (Acute 12/07/17) Social History (Updated 01/06/25 @ 05:36 by Yuriy Wolfe MD) Smoking/Tobacco Use Status: Never Second Hand Exposure: No Smoking risk assessment performed?: Yes Alcohol Intake: never Drug use: Never Substance use type: does not use Adopted: No Caregiver/Support person: No Foster care: No Household members: other Details: adult child Housing: house Number of Children: 0 number of grandchildren: 0 Communication Needs: Hard of Hearing Education Level: other Details: PhD Do you need help understanding health information?: Never 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 Pets and animals: Yes Pets and animals: dog(s) Sexually active: No Current gender identity: male What is your relationship status?: refused to answer How often do you talk on the phone with friends or family?: never How often do you get together with friends or relatives?: never How often do you attend jainism or church services?: decline to answer Do you belong to any clubs or organized social groups?: no Panel score (0-1 are the most socially isolated patients): 0 What type of physical activity do you participate in: walking Duration: 60-90 minutes/day Frequency: daily Special kenyon needs: No Agree to transfusion: Yes Seatbelt use: always Helmet use: No Drive intox or ride w/intox tank truck driver: No Working smoke detector in home: No Carbon monox detector in home: No Firearms in home: Yes Firearms unloaded and locked: Yes Do you feel safe at home: Yes Do you feel safe in your relationship?: Yes Victim of physical abuse: No Victim of emotional abuse: No Victim of sexual abuse: No Would you like helpful sources: No Additional Social history: Pt denied every having any surgeries. Exam Const General: frail appearing Nutritional Appearance: malnourished Orientation: not oriented to person, not oriented to place and not oriented to time Limitations: altered mental status HENMT Head: normal to inspection Neck Neck: no lymphadenopathy, trachea midline and JVD Resp Effort & Inspection: cough and decreased respiratory effort Auscultation: bronchovesicular breath sounds and diminished lung sounds (Bilaterally) GI Inspection: distended Palpation: firm, no guarding and ascites Auscultation: normal bowel sounds Results Last Vital Signs Temp 98.8 F 01/07/25 08:14 Pulse 70 01/07/25 01:09 Resp 24 01/07/25 01:09 BP 116/52 L 01/07/25 01:09 Pulse Ox 92 01/07/25 01:14 Labs 01/07/25 06:10 01/07/25 06:10 Labs: Laboratory Results - last 24 hr 01/06/25 01/07/25 21:30 06:10 WBC 7.77 RBC 3.78 L Hgb 10.6 L Hct 33.8 L MCV 89 MCH 28.0 MCHC 31.4 L RDW 14.9 H Plt Count 142 MPV 10.9 Immature Gran % 0.4 Neutrophils % 78.2 Lymphocytes % 10.7 Monocytes % 10.6 Eosinophils % 0.0 Basophils % 0.1 Nucleated RBC % 0.0 Absolute Neutrophils 6.08 Absolute Lymphocytes 0.83 L Absolute Monocytes 0.82 H Absolute Eosinophils 0.00 Absolute Basophils 0.01 RBC Morphology Normal Sodium 148 H Potassium 4.6 Chloride 113 H Carbon Dioxide 25.3 Anion Gap 9.7 BUN 54 H Creatinine 2.2 H Est GFR (CKD-EPI 2020) 28.28 Glucose 109 H Calcium 8.7 Total Bilirubin 0.54 AST 22 ALT 19 Alkaline Phosphatase 143 H Total Protein 5.9 L Albumin 2.3 L Ur Random Creatinine 115.34 U Random Total Protein 129.1 U [place] Prot/Creat Ratio 1.[address] scan report/results: report reviewed and image reviewed CT scan - chest: report reviewed and image reviewed CT scan - pelvis: report reviewed and image reviewed
--- NOTE | 2025-01-07 08:38 | PDOC.CMPRO ---
Date of service: 01/07/25 Time of Service: 08:38 Care Management Progress Note Progress Note Text Progress Note Text: Kt was sitting up in bed when CM met with him today. He was transferred to the ICU due to increased difficulty breathing. He has large bilateral pleural effusions as well as a very large pericardial effusion. Kt was much more confused today that yesterday . Per nursing, his daughter called today and confirmed that Kt has been getting increasingly confused at home.Clinically, Kt is doing OK. His vital signs are stable and his oxygen saturation has been in the 90s on 1L/min of nasal O2. He did have an Echocardiogram today however the report is not yet available. CM will continue to attempt to reach his daughter to discuss discharge planning. Discharge Potential Discharge Needs: PCP F/U Appt Anticipated Barriers to Discharge: Bed availability Patient/Family Education Needs: Review discharge instructions, discuss Ask Me Three Transportation: RCT Plan: Anticipate Kt will be transferred to a SNF for short term rehab prior to returning home. If SNF is not an option, he will have new home health services for RN, PT, OT and ADVERTISING ASSISTANT. He will follow up with community providers and plan of care. Transport to be determined by disposition. CM will follow and continue to support discharge planning efforts. Social Determinants of Health Screening Will the Patient Participate in the Screening?: Unable to obtain Problems where you live: other In the past 12 months, have you had to go without electric, gas, oil or water in your home?: yes Health Related Social Needs Health related social needs: inadequate housing (Z59.1) and material hardship(utilities) (Z59.12)
[2025-01-07] MEDS: LORazepam 2 MG/ML VIAL 1 MG IM (13:31)
--- NOTE | 2025-01-07 16:01 | PGE_ITS ---
Date of Service Date of service: 01/07/25 Time of Service: 08:15 Assessment and Plan Assessment and plan (1) Hypoxemia: Status: Acute Assessment and plan: #88% on initial presenation. -Etiology unclear initially, pleural effusions and concern for pericardial effusion on repeat CXR at CT -Continuing to require O2 NC, continue to monitor. (2) Anasarca: Status: Acute Assessment and plan: Unclear etiology. This appears to have developed slowly based on reported history, very large pericardial effusion without tamponade, and chronic renal insuffiency He has some evidence of liver fibrosis, small liver and slightly large spleen, labs with high fibrosis-4 score but not c/w overt or decompensated cirrhosis to explain this. Some proteinuria but well below nephrotic level He attributes swelling to amlodipine, this is held, but this can't explain anasarca Heart could have been primary cause with CHF causing the rest of the edema. He does have mod/severe CT C/A/P not contrast, could miss something like pancreatic cancer. Surgery consulted to take some fluid for testing, cytology. Not all elements of TAFRO syndrome. (3) Pericardial effusion without cardiac tamponade: Status: Acute Assessment and plan: Initial hypotension felt to be hypovolemia and responded to fluids, but I am concerned hypovolemia also could be restrictive physiology from pericardial effusion responding to increased preload. Echo showed large effusion with some effect on right ventricle but no overt tamponade. Continue to obvserve closely, avoid diureis for now. (4) Hypothermia: Status: Acute Assessment and plan: #Due to not having heat in his house -Treated with Finesse barnett, stable since. (5) BPH (benign prostatic hyperplasia): Status: Chronic Assessment and plan: #Required coud? for Lyon placement. -Urinary retention with obstructive component suspected but not clearly documented as above -Suspect hematuria secondary to traumatic instrumentation required for Lyon placement, now clear visually. (6) Hypernatremia: Status: Acute Assessment and plan: appears he didn't have access to fluids recently. Stopped NS. He is drinking, continue oral fluids ad gurinder. (7) Venous stasis dermatitis of both lower extremities: Status: Acute Assessment and plan: wound care (8) Mood disorder: Status: Acute Assessment and plan: He was agitated, pulling out IV and swinging his line with blood at the nurses today during routine care. We did use 1mg lorazepam for his own safety and that of the staff. I evaluated him before and after the event and he has stabilized. Continue outpatient therapy with mirtazipine. (9) Renal insufficiency: Status: Chronic Assessment and plan: #Initially considered acute, but last Cr was 3 years ago. Has been stable so this is apparently chronic - Suspected pre-renal azotemia on admission but did not improve with hydration. - Lyon placed, no clear diuresis to suggest bladder outlet obstruction. - no obstruction or renal disease to explain on non-contrast CT - some proteinuria but not nephrotic level as above. continue to monitor (10) DVT prophylaxis: Status: Acute Assessment and plan: enoxaparin (11) Lacunar cerebrovascular accident (CVA): Assessment and plan: noted on CT, not new. Address risk factors prior to discharge. Exam Narrative Exam Narrative: GEN: alert and oriented x 3, NAD. voice stuttering Lungs: Diminished left base, but otherwise clear CV: bradycardic but regular. +2/6 murmur to neck abd: +BS, distended and moderately tense but not tender. Fluid wave palpable ext: 3+ edwige edema with venous stasis changes in both lower legs Objective Last Vital Signs Temp 37.2 C 01/07/25 13:24 Pulse 70 01/07/25 01:09 Resp 24 01/07/25 01:09 BP 116/52 L 01/07/25 01:09 Pulse Ox 93 01/07/25 10:37 Laboratory Results - last 24 hr 01/06/25 01/07/25 21:30 06:10 WBC 7.77 RBC 3.78 L Hgb 10.6 L Hct 33.8 L MCV 89 MCH 28.0 MCHC 31.4 L RDW 14.9 H Plt Count 142 MPV 10.9 Immature Gran % 0.4 Neutrophils % 78.2 Lymphocytes % 10.7 Monocytes % 10.6 Eosinophils % 0.0 Basophils % 0.1 Nucleated RBC % 0.0 Absolute Neutrophils 6.08 Absolute Lymphocytes 0.83 L Absolute Monocytes 0.82 H Absolute Eosinophils 0.00 Absolute Basophils 0.01 RBC Morphology Normal Sodium 148 H Potassium 4.6 Chloride 113 H Carbon Dioxide 25.3 Anion Gap 9.7 BUN 54 H Creatinine 2.2 H Est GFR (CKD-EPI 2020) 28.28 Glucose 109 H Calcium 8.7 Total Bilirubin 0.54 AST 22 ALT 19 Alkaline Phosphatase 143 H Total Protein 5.9 L Albumin 2.3 L Ur Random Creatinine 115.34 U Random Total Protein 129.1 U [place] Prot/Creat Ratio 1.11 Time Spent with Patient Time Spent with Patient: >50 minutes Time was spent: preparing to see the patient(eg.review tests), obtaining and/or reviewing separately otained hiistory, ordering medications,tests, procedures, referring, communicating with other health acute care clinical nurse specialist, indepentently interpreting results, counseling the patient and care coordination
[2025-01-08] VITALS (44 sets, daily range): BP systolic 98–123; BP diastolic 38–96; PULSE 41–85; RESP 17–26; TEMP 36.3–36.6; O2SAT 89–100
--- NOTE | 2025-01-08 06:31 | W.PC.ACHO ---
Registration Status: Primary Language: Preferred Language: ED Information & Data Chief Complaint AMS/LOC 01/05/25 16:19 Chief Complaint AMS/LOC 01/05/25 16:16 Triage Note BIBA d/t daughter calling 01/05/25 16:16 911 reporting pt speech is different than typical. LKW Sunday. Pt is conscious, alert and oriented. Py hypothermic on arrival, RN reports core temp 88. Medical / Surgical History (Last Updated 01/07/25 @ 19:03 by Tonny Miller) Lacunar cerebrovascular accident (CVA) Aortic stenosis Most Recent Vital Signs Temperature 37.0 C 01/07/25 22:50 Temperature Source Temporal Artery Scan 01/07/25 22:50 Pulse 75 01/08/25 02:01 Pulse Rhythm Regular 01/05/25 22:58 Pulse 76 01/08/25 02:01 Respiratory Rate 26 H 01/08/25 02:01 Respiratory Effort Short of Breath, Incrsd Work of Breathing 01/06/25 19:05 Respiratory Depth Shallow 01/06/25 19:05 Respiratory Pattern Tachypnea 01/06/25 19:05 Blood Pressure 109/68 01/08/25 02:01 Blood Pressure Mean 77 01/08/25 02:01 Blood Pressure Position Supine 01/06/25 19:05 Pulse Oximetry 96 01/08/25 02:30 Oxygen Delivery Method Nasal Cannula 01/08/25 02:30 Oxygen Flow Rate 3 01/08/25 02:30 Pain Level 0 01/06/25 19:05 Comment MD aware 01/05/25 18:41 Allergies lamotrigine (From Lamictal) Allergy (Intermediate, Unverified 11/27/23 10:32) Skin Rash Active Medications Generic Name Dose Route Start Last Admin Trade Name Freq PRN Reason Stop Dose Admin Mirtazapine 30 mg 01/07/25 20:00 01/07/25 23:47 Mirtazapine 15 Mg Tab PO Not Given HS ANURADHA Sodium Chloride 0 ml 01/07/25 20:00 01/07/25 22:00 Normal Saline Flush 10 Ml Syr IVP 20 ml BID ANURADHA Administration IV IV Catheter Type [Right Hand] Saline Lock IV Catheter Type [Left Forearm Saline Lock ] IV Catheter Type [Right Saline Lock Antecubital] IV Catheter Gauge [Right Hand] 18 IV Catheter Gauge [Left 20 Forearm] IV Catheter Gauge [Right 18 Antecubital] Diagnostics 03/05/25 Range/Units 06:10 WBC 7.77 (4.4-10.8) 10^3/uL RBC 3.78 L (4.36-5.78) 10^6/uL Hgb 10.6 L (13.5-17.5) g/dL Hct 33.8 L (40.0-50.0) % MCV 89 (80-95) fL MCH 28.0 (27.0-33.0) pg MCHC 31.4 L (32.0-36.0) % RDW 14.9 H (11.8-14.1) % Plt Count 142 (130-400) 10^3/uL MPV 10.9 (8.0-11.0) fL Immature Gran % 0.4 % Neutrophils % 78.2 % Lymphocytes % 10.7 % Monocytes % 10.6 % Eosinophils % 0.0 % Basophils % 0.1 % Nucleated RBC % 0.0 (0.0-0.3) % Absolute Neutrophils 6.08 (1.2-6.7) 10^3/uL Absolute Lymphocytes 0.83 L (1.2-3.4) 10^3/uL Absolute Monocytes 0.82 H (0.1-0.8) 10^3/uL Absolute Eosinophils 0.00 (0.0-0.7) 10^3/uL Absolute Basophils 0.01 (0.0-0.2) 10^3/uL RBC Morphology Normal Sodium 148 H (136-145) mmol/L Potassium 4.6 (3.5-5.1) mmol/L Chloride 113 H (98-107) mmol/L Carbon Dioxide 25.3 (21.0-32.0) mmol/L Anion Gap 9.7 (3-11) mmol/L BUN 54 H (7-18) mg/dL Creatinine 2.2 H (0.70-1.30) mg/dL Est GFR (CKD-EPI 2020) 28.28 (mL/min/1.73m2) Glucose 109 H (74-106) mg/dL Calcium 8.7 (8.5-10.1) mg/dL Total Bilirubin 0.54 (0.2-1.0) mg/dL AST 22 (15-37) U/L ALT 19 (16-63) U/L Alkaline Phosphatase 143 H (46-116) U/L Total Protein 5.9 L (6.4-8.2) g/dL Albumin 2.3 L (3.4-5.0) g/dL 01/05/25 17:10 Blood Culture - Preliminary Blood NO GROWTH 48 HOURS 01/05/25 16:20 Blood Culture - Preliminary Blood NO GROWTH 48 HOURS Intake and Output - 24 Hour Total 01/05/25 15:48 thru 01/08/25 05:37 Intake Total 2786.250 Output Total 1530 Balance 1256.250 Weight 65 kg Intake: IV 2396.250 Oral 390 Output: Urine 1530 Other: Urine Color Light Carla Urine Appearance Clear Comment via night nurse report, pt had traumatic zimmerman insertion due to BPH. Pt scrotum is edematous Falls Risk Assessment History of Falls No History 01/06/25 19:05 Contributing Factors No Factors 01/06/25 19:05 Ambulatory Aids Uses ambulatory device 01/06/25 19:05 Tubes/Lines With any additional score 01/06/25 19:05 Gait Evaluation W/any additional score 01/06/25 19:05 Cognition Cognitive impairment 01/06/25 19:05 Fall Total Score 70 01/06/25 19:05 Level of Risk High Risk 01/06/25 19:05 Problems (Last Updated 01/07/25 @ 19:03 by Tonny Miller) Pericardial effusion without cardiac tamponade (Acute) Renal insufficiency (Chronic) Anasarca (Acute) Tense ascites (Acute) Venous stasis dermatitis of both lower extremities (Acute) DVT prophylaxis (Acute) Hypernatremia (Acute) Hypoxemia (Acute) BPH (benign prostatic hyperplasia) (Chronic) Hypovolemia (Acute) Hypothermia (Acute) Acute renal failure (Acute) Mood disorder (Acute) v v v v v v v v v Sending and/or Receiving Nurses: Please use comment section below to note any information pertinent to the patient hand-off not included above. Information / Comments: Report received from:Misa PELAYO RN
[2025-01-08] MEDS: LORazepam 2 MG/ML VIAL 1 MG IM (08:32)
--- NOTE | 2025-01-08 09:39 | PDOC.CMPRO ---
Date of service: 01/08/25 Time of Service: 09:39 Care Management Progress Note Progress Note Text Progress Note Text: Kt was sitting up in bed when CM met with him. He was very sleepy and did not really respond when CM spoke to him. His daughter Merced was present at the time and indicated that he had not been interacting much with her either. This morning Kt became very agitated and threw his shake across the room and tried to pull out his zimmerman. He was medicated with Ativan 1 mg IM after the incident. Merced met with CM in the family room and provided a lot of information about Kt and his past. 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 She shared that he is brilliant but also has had serious mental health issues. He has been in an out of mental health facilities in the [place], [place] area and has had various diagnoses including bipolar, OCD and paranoid schizophrenia. She is not sure which, if any, were confirmed. Kt did see psychiatrists in the past but Merced reported that his last one fired' him as a patient because he lies constantly. She reported that he is a pathological liar and a hoarder. Merced has her own health issues and indicated that it is becoming more difficult for her to care for Kt. Until about 10 days ago he was independent and was able to care for himself and their dogs. Merced did say that Kt has not bathed in about 2 years and that he never changes his clothes. She stated that he wears the same clothes until she buys him new ones and insists he change. Kt remains ICU level of care and has not had a PT evaluation yet. Given his recent decline, it is likely he would benefit from short term rehab prior to returning home. CM discussed this with Kt before he was transferred to the ICU and, at that time, he was in agreement with the plan. Discharge Potential Discharge Needs: PCP F/U Appt Anticipated Barriers to Discharge: None Identified Patient/Family Education Needs: Review discharge instructions, discuss Ask Me Three Transportation: Private vehicle Plan: Anticipate Kt will be transferred to a SNF for short term rehab prior to returning home. 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 He will follow up with community providers and plan of care. Transport to be determined by disposition. CM will follow and continue to support discharge planning efforts. Social Determinants of Health Screening Will the Patient Participate in the Screening?: Unable to obtain Problems where you live: other In the past 12 months, have you had to go without electric, gas, oil or water in your home?: yes Health Related Social Needs Health related social needs: inadequate housing (Z59.1) and material hardship(utilities) (Z59.12)
[2025-01-08] MEDS: Enoxaparin 30 MG/0.3 ML SYR SC (09:40)
[2025-01-08] MEDS: Normal Saline Flush 10 ML SYR IVP ×3 (09:41→23:54)
--- NOTE | 2025-01-08 11:48 | W.NUTRFU ---
Date of service: 01/08/25 Time of Service: 12:30 Nutrition Note NOTE: Pt is 89yo male arrived by ambulance after dtr noted changes in speech. PT admitted and being treated for Hypoxemia, anasarca, pericardial effusion, hypothermia (no heat in house), venous stasis dermatitis to lower extremeiteies, mood disorder. Has chronic renal insufficiency and hx of CVA. PT curernt BMI wnl, with stable wieght around 65kg >1 year. GFR yesterday 28. Total protein and albumin labs low yesterday (5.9-/2.3 respectively) Time Spent in Nutritional Counseling and Treatment: 0
--- NOTE | 2025-01-08 13:22 | W.PM.PROGNOT ---
Date of Service Date of service: 01/08/25 Time of Service: 13:23 Assessment and Plan Assessment and plan (1) Tense ascites: Status: Acute Assessment and plan: 89-year-old man who has pleural effusions, ascites, pericardial effusion from an unknown etiology. For sure a chronic process. He has some sort of lesion on his pancreas. A lot of things are unclear. Is not clear if the [id number] is the power of licensed chemical spray technician. At the bedside she says that she is not. At the same time she says that he has no other relatives or next of kin. Apparently there is a brother somewhere but they do not talk. It is unclear who would make any of his decisions for him and seems obvious that he is not in a state where he can make any decisions for himself right now. We had a detailed discussion with the daughter?in law at the bedside. Overall I think it is obvious that he is dying, albeit slowly. Unclear what exact processes taking place but simply removing all of this excess fluid from these potential spaces is NOT going to fix him in any meaningful or long?term way. My clinical assessment at the moment is that he is not even suffering or in discomfort at the current moment in time. He certainly does not have any pain on abdominal exam and is resting/sleeping comfortably though I realize he may have gotten some medication earlier. His vital signs are pretty normal. I think the only indication in this case for any invasive procedures for diagnostic purposes. I am not convinced that we need a diagnosis considering the overall picture. I defer that decision to the family and the hospitalist service. There is certainly significant risk for a falsely negative cytology report and I was very clear with the daughter?in-law that just because we take some the fluid off does not mean we will get any answers. I think he should be DNR/DNI and probably comfort measures are the most compassionate and appropriate management strategies. Subjective Subjective Interval history since last seen: Overnight seems to have improved clinically. Breathing better, seems comfortable and is resting comfortably at the bedside. Nursing staff reports he became quite combative earlier and restless and irritable and not cooperative. He is breathing 99% on 1 L nasal cannula Exam Narrative Exam Narrative: Gen: Non-toxic, comfortable, asleep. Psych: Unable to assess Chest: Non-labored breathing, no wheezing, no visible shortness of breath. Heart: Regular Abdomen: Softly distended, not tender, not tense Objective Last Vital Signs Temp 97.9 F 01/08/25 12:28 Pulse 82 01/08/25 12:08 Resp 23 01/08/25 12:08 BP 107/51 L 01/08/25 12:08 Pulse Ox 98 01/08/25 12:08 Time Spent with Patient Time Spent with Patient: 25-34 minutes Time was spent: preparing to see the patient(eg.review tests), referring, communicating with other health animal care worker, indepentently interpreting results and other (Discussing with family)
--- NOTE | 2025-01-08 13:54 | W.PM.PROGNOT ---
Date of Service Date of service: 01/08/25 Time of Service: 13:56 Assessment and Plan Assessment and plan (1) Anasarca: Status: Acute Assessment and plan: Unclear etiology. This appears to have developed slowly based on reported history, very large pericardial effusion without tamponade, and chronic renal insuffiency He has some evidence of liver fibrosis, small liver and slightly large spleen, labs with high fibrosis-4 score but not c/w overt or decompensated cirrhosis to explain this. Some proteinuria but well below nephrotic level He attributes swelling to amlodipine, this is held, but this can't explain anasarca It's possible heart could have been primary cause with CHF causing the rest of the edema, though no heart failure on echo. He does have mod/severe but this shouldn't cause this. CT C/A/P not contrast, did show two pancreatic masses, cystic, but one exophytic, concerning for cancer. Pancreatic cancer or other malignancy is the most likely unifying diagnosis that would explain his presentation. Surgery consulted, and I had an in depth discussion with daughter and Dr. Muse today. Initially she wanted to sample fluid for diagnosis, but then decdied against it and to focus on comfort. She wants to make sure w treat pain, start with low dose hydromorphone prn. Consider INVASIVE CARDIOVASCULAR TECHNOLOGIST status, but wait to see if he will wake up enough to have a conversation about his own goals before we make this choice. (2) Cystic mass of pancreas: Status: Acute Assessment and plan: As above. (3) Hypoxemia: Status: Acute Assessment and plan: #88% on initial presenation. -Etiology unclear initially, pleural effusions and concern for pericardial effusion on repeat CXR at CT -Continuing to require O2 NC, continue to monitor. Some productive cough but no pneumnia on XR and CT on admission. (4) Pericardial effusion without cardiac tamponade: Status: Acute Assessment and plan: Initial hypotension felt to be hypovolemia and responded to fluids, but I am concerned hypovolemia also could be restrictive physiology from pericardial effusion responding to increased preload. Echo showed large effusion with some effect on right ventricle but no overt tamponade. Continue to obvserve closely, avoid diureis for now. (5) BPH (benign prostatic hyperplasia): Status: Chronic Assessment and plan: #Required coud? for Zimmerman placement. -Urinary retention with obstructive component suspected but not clearly documented as above -Suspect hematuria secondary to traumatic instrumentation required for Zimmerman placement, now clear visually. (6) Hypernatremia: Status: Acute Assessment and plan: appears he didn't have access to fluids recently. Stopped NS. He is drinking, continue oral fluids ad gurinder. (7) Venous stasis dermatitis of both lower extremities: Status: Acute Assessment and plan: wound care, no change (8) Mood disorder: Status: Acute Assessment and plan: He was agitated, aggresive towards nurses, and causing self harm again this morning. We again did use 1mg lorazepam for his own safety and that of the staff. I evaluated him before and after the event and he has again stabilized. After discussion with daughter, will remove zimmerman and monitor lines if he wakes up and is more agitated again, focus should be on comfort. Continue outpatient therapy with mirtazipine. (9) Renal insufficiency: Status: Chronic Assessment and plan: #Initially considered acute, but last Cr was 3 years ago. Has been stable so this is apparently chronic - Suspected pre-renal azotemia on admission but did not improve with hydration. - Zimmerman placed, no clear diuresis to suggest bladder outlet obstruction. - no obstruction or renal disease to explain on non-contrast CT - some proteinuria but not nephrotic level as above. 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 Consider addressing risk factors prior to discharge. (11) DVT prophylaxis: Status: Acute Assessment and plan: enoxaparin Subjective Subjective Patient reports: denies fever Interval history since last seen: Agitated this morning, demanding scissors, threw his shake across the room, trying to pull zimmerman catheter, not engaging in conversation. Given 1mg lorazepam for safety. Coughing up some brown sputum, but O2 requirement stable. He was eating yesterday and this morning before he became agitated. Exam Narrative Exam Narrative: GEN: Sedated, not interactive. Grimacing at times with movement. Lungs: Diminished left base, but otherwise clear CV: bradycardic but regular. +2/6 murmur to neck abd: +BS, distended and moderately tense but not tender. Fluid wave palpable. Zimmerman in place ext: 3+ edwige edema with venous stasis changes in both lower legs Objective Last Vital Signs Temp 36.6 C 01/08/25 12:28 Pulse 82 01/08/25 12:08 Resp 23 01/08/25 12:08 BP 107/51 L 01/08/25 12:08 Pulse Ox 98 01/08/25 12:08 Time Spent with Patient Time Spent with Patient: >50 minutes Time was spent: preparing to see the patient(eg.review tests), obtaining and/or reviewing separately otained hiistory, ordering medications,tests, procedures, referring, communicating with other health memory care program director, indepentently interpreting results, counseling the patient and care coordination
--- NOTE | 2025-01-08 15:05 | PCNE_ITS ---
Date of service: 01/08/25 Time of Service: 15:05 History of Present Illness Narrative: Kt is an 89 year old man who is currently hospitalized with pericardial effusion, pulmonary effusion, anasarca, ascites, renal insufficiency, venous stasis dermatitis of legs. There is note made of masses on pancreas on imaging concerning for possible cancer. He has a long Hx of mental health issues. He was initially awake and alert and engaging in conversation but he has had outbursts of agitation and aggressive behavior the last 2 days. He has required lorazepam, which made him very sleepy. His daughter, Merced lives with him and has been able to provide Hx and help guide care. Palliative was consulted to discuss goals of care. I spoke with MD HERB, RN in the ICU. Unfortunately, I was unable to wake him with verbal and tactile stimulation this afternoon. I attempted to call his daughter but there was no answer and no VM to leave a message. It does not appear that he has AD/HCA forms. In this case, if his mental status does not clear, his daughter can act as a surrogate decision maker for him as it is known that they live together and she is likely to made decisions with his best interest in mind/decisions that he would likely make if he was able to communicate. Palliative will continue to follow him and connect with family to help support decision making. At this point, the plan is to allow some time for Kt to clear the lorazepam out of his system to see if he is able to participate in decision making. He does appear to have multiple medical issues that have likely accumulated over time. It appears that EDUCATION MANAGERS would be appropriate for him if his daughter feels this is what he would want. Assessment and Plan Assessment and plan (1) Anasarca: Status: Acute (2) Cystic mass of pancreas: Status: Acute (3) Hypoxemia: Status: Acute (4) Pericardial effusion without cardiac tamponade: Status: Acute Assessment and plan: (5) BPH (benign prostatic hyperplasia): Status: Chronic (6) Hypernatremia: Status: Acute (7) Venous stasis dermatitis of both lower extremities: Status: Acute (8) Mood disorder: Status: Acute (9) Renal insufficiency: Status: Chronic (10) Lacunar cerebrovascular accident (CVA): (11) Palliative care patient: Status: Acute Assessment and plan: Kt is an 89 year old man who is currently hospitalized with pericardial effusion, pulmonary effusion, anasarca, ascites, renal insufficiency, venous stasis dermatitis of legs. There is note made of masses on pancreas on imaging, concerning for possible cancer. He has a long Hx of mental health issues. He was initially awake and alert and engaging in conversation but he has had outbursts of agitation and aggressive behavior the last 2 days. He has required lorazepam, which lead to sedation. His daughter, Merced lives with him and has been able to provide Hx and help guide care. Palliative was consulted to discuss goals of care. I spoke with MD HERB, RN in the ICU. Unfortunately, I was unable to wake him with verbal and tactile stimulation this afternoon. I attempted to call his daughter but there was no answer and no VM to leave a message. It does not appear that he has AD/HCA forms. In this case, if his mental status does not clear, his daughter can act as a surrogate decision maker for him as it is known that they live together and she is likely to made decisions with his best interest in mind/decisions that he would likely make if he was able to communicate. Palliative will continue to follow him and connect with family to help support decision making. At this point, the plan is to allow some time for Kt to clear the lorazepam out of his system to see if he is able to participate in decision making. He does appear to have multiple medical issues that have likely accumulated over time. It appears that EDUCATION MANAGERS would be appropriate for him if his daughter feels this is what he would want. Review of Systems Narrative: unable due to mental status. [facility] All Active Problems (Updated 01/09/25 @ 13:43 by Negra Carrero NP) Palliative care patient (Acute) Cystic mass of pancreas (Acute) Pericardial effusion without cardiac tamponade (Acute) Renal insufficiency (Chronic) Anasarca (Acute) Tense ascites (Acute) Venous stasis dermatitis of both lower extremities (Acute) DVT prophylaxis (Acute) Hypernatremia (Acute) Hypoxemia (Acute) BPH (benign prostatic hyperplasia) (Chronic) Hypovolemia (Acute) Hypothermia (Acute) Acute renal failure (Acute) Facial lesion (Acute) Heart murmur (Acute) 01/2022-systolic loudest at upper sternal border, consistent with modest left ear-patient declines further evaluation Depression (Chronic) HTN (hypertension) (Chronic) Mood disorder (Acute) Epistaxis (Acute 12/07/17) Medical History Lacunar cerebrovascular accident (CVA) Aortic stenosis Social History Smoking/Tobacco Use Status: Never Second Hand Exposure: No Smoking risk assessment performed?: Yes Alcohol Intake: never Drug use: Never Substance use type: does not use Adopted: No Caregiver/Support person: No Foster care: No Household members: other Details: adult child Housing: house Number of Children: 0 number of grandchildren: 0 Communication Needs: Hard of Hearing Education Level: other Details: PhD Do you need help understanding health information?: Never 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 Pets and animals: Yes Pets and animals: dog(s) Sexually active: No Current gender identity: male What is your relationship status?: refused to answer How often do you talk on the phone with friends or family?: never How often do you get together with friends or relatives?: never How often do you attend yazidism or jehovah's witness services?: decline to answer Do you belong to any clubs or organized social groups?: no Panel score (0-1 are the most socially isolated patients): 0 What type of physical activity do you participate in: walking Duration: 60-90 minutes/day Frequency: daily Special kenyon needs: No Agree to transfusion: Yes Seatbelt use: always Helmet use: No Drive intox or ride w/intox telephone directory distributor driver: No Working smoke detector in home: No Carbon monox detector in home: No Firearms in home: Yes Firearms unloaded and locked: Yes Do you feel safe at home: Yes Do you feel safe in your relationship?: Yes Victim of physical abuse: No Victim of emotional abuse: No Victim of sexual abuse: No Would you like helpful sources: No Additional Social history: Pt denied every having any surgeries. Exam Narrative Exam Narrative: General: chronically ill appearing, elderly man, lying in the hospital bed. He is sedated, does not respond to verbal or tactile stimuli. HEENT: atraumatic Respiratory: respirations appear unlabored, wearing O2 via nc. Ext: edema and venous stasis changes noted to BLEs. Results Last Vital Signs Temp 36.6 C 01/08/25 12:28 Pulse 51 L 01/08/25 14:02 Resp 22 01/08/25 14:02 BP 99/40 L 01/08/25 14:02 Pulse Ox 96 01/08/25 14:02 Labs 01/07/25 06:10 01/07/25 06:10 Time Spent Time Spent with Patient Time Spent(min): 45
--- NOTE | 2025-01-08 23:51 | W.EVENT ---
Date of service: 01/08/25 Time of Service: 23:51 Event Note: patient becoming awake and more agitated again. I tried to have a conversation with him. He wants IVs off and zimmerman out. He was not able to recognize where he is, let alone the implications of his medical decisions. Given the discussion with his daughter who is next of kin, we should not continue with invasive monitoring when we aren't providing any care that will cure his medical problems. Will plan to remove monitoring and zimmerman and his line and focus on comfort. Per previous discussion, CODE status changed to DNR/DNI. Time Spent with Patient Time spent in critical care(minutes): 20 Time Spent Included: Documenting critically ill care, Time at immediate bedside and Discussing critically ill care with other medical staff
[2025-01-09] MEDS: LORazepam 2 MG/ML VIAL 1 MG IVP (00:09)
--- NOTE | 2025-01-09 07:03 | W.PC.ACHO ---
Registration Status: Primary Language: Preferred Language: ED Information & Data Chief Complaint AMS/LOC 01/05/25 16:19 Chief Complaint AMS/LOC 01/05/25 16:16 Triage Note BIBA d/t daughter calling 01/05/25 16:16 911 reporting pt speech is different than typical. LKW Sunday. Pt is conscious, alert and oriented. Py hypothermic on arrival, RN reports core temp 88. Medical / Surgical History (Last Updated 01/07/25 @ 19:03 by Tonny Miller) Lacunar cerebrovascular accident (CVA) Aortic stenosis Most Recent Vital Signs Temperature 36.3 C L 01/08/25 22:36 Temperature Source Temporal Artery Scan 01/08/25 22:36 Pulse 52 L 01/08/25 23:00 Pulse Rhythm Regular 01/05/25 22:58 Pulse 56 L 01/08/25 23:00 Respiratory Rate 19 01/08/25 23:00 Respiratory Effort Short of Breath, Incrsd Work of Breathing 01/06/25 19:05 Respiratory Depth Shallow 01/06/25 19:05 Respiratory Pattern Tachypnea 01/06/25 19:05 Blood Pressure 107/42 L 01/08/25 22:01 Blood Pressure Mean 59 01/08/25 22:01 Blood Pressure Position Supine 01/06/25 19:05 Pulse Oximetry 95 01/08/25 23:00 Oxygen Delivery Method Room Air 01/09/25 04:00 Oxygen Flow Rate 0 01/09/25 04:00 Fraction of Inspired Oxygen (FIO2) 1 01/08/25 22:36 Pain Level 0 01/06/25 19:05 Comment MD aware 01/05/25 18:41 Allergies lamotrigine (From Lamictal) Allergy (Intermediate, Unverified 11/27/23 10:32) Skin Rash Active Medications Generic Name Dose Route Start Last Admin Trade Name Freq PRN Reason Stop Dose Admin Mirtazapine 30 mg 01/07/25 20:00 01/09/25 00:02 Mirtazapine 15 Mg Tab PO Not Given HS ANURADHA IV IV Catheter Type [Right Mid-line Peripheral Line Midline] IV Catheter Type [Right Hand] Saline Lock IV Catheter Type [Left Forearm Saline Lock ] IV Catheter Type [Right Saline Lock Antecubital] IV Catheter Gauge [Right 20 Midline] IV Catheter Gauge [Right Hand] 18 IV Catheter Gauge [Left 20 Forearm] IV Catheter Gauge [Right 18 Antecubital] 01/05/25 17:10 Blood Culture - Preliminary Blood NO GROWTH 72 HOURS 01/05/25 16:20 Blood Culture - Preliminary Blood NO GROWTH 72 HOURS Intake and Output - 24 Hour Total 01/05/25 15:48 thru 01/08/25 22:34 Intake Total 2786.250 Output Total 2485 Balance 301.250 Weight 65 kg Intake: IV 2396.250 Oral 390 Output: Urine 2485 Other: Urine Color Yellow Urine Appearance Clear Comment via night nurse report, pt had traumatic zimmerman insertion due to BPH. Pt scrotum is edematous Falls Risk Assessment History of Falls No History 01/06/25 19:05 Contributing Factors No Factors 01/06/25 19:05 Ambulatory Aids Uses ambulatory device 01/06/25 19:05 Tubes/Lines With any additional score 01/06/25 19:05 Gait Evaluation W/any additional score 01/06/25 19:05 Cognition Cognitive impairment 01/06/25 19:05 Fall Total Score 70 01/06/25 19:05 Level of Risk High Risk 01/06/25 19:05 Problems (Last Updated 01/07/25 @ 19:03 by Tonny Miller) Cystic mass of pancreas (Acute) Pericardial effusion without cardiac tamponade (Acute) Renal insufficiency (Chronic) Anasarca (Acute) Tense ascites (Acute) Venous stasis dermatitis of both lower extremities (Acute) DVT prophylaxis (Acute) Hypernatremia (Acute) Hypoxemia (Acute) BPH (benign prostatic hyperplasia) (Chronic) Hypovolemia (Acute) Hypothermia (Acute) Acute renal failure (Acute) Mood disorder (Acute) v v v v v v v v v Sending and/or Receiving Nurses: Please use comment section below to note any information pertinent to the patient hand-off not included above. Information / Comments: Report received from: report from DANYELLE Lott. patient is alert and oriented to person only. patient is chronically in afib, lungs are clear in upper lung vazquez, but cases are. often uses accesory muscles with respirations and respirations are often times abnormal, abd is distended hypoactive bowel sounds, LBM LEAD BLENDER. pitting edema in all extremities and scrotum. BLE are extra scaley and dry. no open areas per PANEL MACHINE TENDER. Zimmerman still remains in place.
[2025-01-09] MEDS: LORazepam 2 MG/ML VIAL 0.5 MG IM ×4 (08:49→21:46)
[2025-01-09] MEDS: Haloperidol 5 MG/ML VIAL 2 MG IM/IV (09:44)
--- NOTE | 2025-01-09 10:05 | PDOC.CMPRO ---
Date of service: 01/09/25 Time of Service: 10:05 Care Management Progress Note Progress Note Text Progress Note Text: Kt was lying in bed completely naked when CM attempted to meet with him. He has resisted efforts to be covered. This morning Kt was again confused, agitated and combative and received 2 doses of Lorazepam.. HERB did speak with his daughter Merced who expressed that she wants him to be kept comfortable. Last evening Kt's code status was changed from full code to DNR/DNI. Today, in a conversation with Palliative Care, Merced agreed to be Kt's surrogate decision maker and he was transition to comfort care.When Negra from Palliative care met with him, Kt indicated that he was in pain and also confirmed that he wanted Merced to make decisions.. He will be started on a Fentanyl patch at 12.5 mcg. No further procedures or treatments will be attempted. It has been difficult for staff to perform care and administer medications because Kt has been so resistant. He has not had any blood work or imaging for the past 2 days nor has there been any intake documented for that same period of time.It is hoped that if his pain is controlled, he will be less aggressive and may allow staff to make him more comfortable. Discharge Potential Discharge Needs: PCP F/U Appt Anticipated Barriers to Discharge: None Identified Patient/Family Education Needs: Review discharge instructions, discuss Ask Me Three Transportation: Private vehicle Plan: Kt's discharge plan is not clear at this time. There had been a plan to transfer him to a SNF for short term rehab, however with the recent changes in mentation and his physical decline, that no longer seems likely. CM will follow and continue to support Kt and his family. Social Determinants of Health Screening Will the Patient Participate in the Screening?: Unable to obtain Problems where you live: other In the past 12 months, have you had to go without electric, gas, oil or water in your home?: yes Health Related Social Needs Health related social needs: inadequate housing (Z59.1) and material hardship(utilities) (Z59.12)
--- NOTE | 2025-01-09 13:54 | PGE_ITS ---
Date of Service Date of service: 01/09/25 Time of Service: 14:02 Assessment and Plan Assessment and plan (1) Anasarca: Status: Acute Assessment and plan: Unclear etiology. This appears to have developed slowly based on reported history, very large pericardial effusion without tamponade, and chronic renal insuffiency He has some evidence of liver fibrosis, small liver and slightly large spleen, labs with high fibrosis-4 score but not c/w overt or decompensated cirrhosis to explain this. Some proteinuria but well below nephrotic level He attributes swelling to amlodipine, this is held, but this can't explain anasarca It's possible heart could have been primary cause with CHF causing the rest of the edema, though no heart failure on echo. He does have mod/severe but this shouldn't cause this. CT C/A/P not contrast, did show two pancreatic masses, cystic, but one exophytic, concerning for cancer. Pancreatic cancer or other malignancy is the most likely unifying diagnosis that would explain his presentation. Surgery consulted, and I had an in depth discussion with daughter and Dr. Muse today. Initially she wanted to sample fluid for diagnosis, but then de cdied against it and to focus on comfort. She wants to make sure w treat pain, start with low dose hydromorphone prn. Consider VISITOR SERVICE ASSISTANT status, but wait to see if he will wake up enough to have a conversation about his own goals before we make this choice. (2) Cystic mass of pancreas: Status: Acute Assessment and plan: As above. (3) Hypoxemia: Status: Acute Assessment and plan: #88% on initial presenation. -Etiology unclear initially, pleural effusions and concern for pericardial effusion on repeat CXR at CT -Continuing to require O2 NC, continue to monitor. Some productive cough but no pneumnia on XR and CT on admission. (4) Pericardial effusion without cardiac tamponade: Status: Acute Assessment and plan: Initial hypotension felt to be hypovolemia and responded to fluids, but I am concerned hypovolemia also could be restrictive physiology from pericardial effusion responding to increased preload. Echo showed large effusion with some effect on right ventricle but no overt tamponade. Continue to obvserve closely, avoid diureis for now. (5) BPH (benign prostatic hyperplasia): Status: Chronic Assessment and plan: #Required coud? for Zimmerman placement. -Urinary retention with obstructive component suspected but not clearly documented as above -Suspect hematuria secondary to traumatic instrumentation required for Zimmerman placement, now clear visually. (6) Hypernatremia: Status: Acute Assessment and plan: appears he didn't have access to fluids recently. Stopped NS. He is drinking, continue oral fluids ad gurinder. (7) Venous stasis dermatitis of both lower extremities: Status: Acute Assessment and plan: wound care, no change (8) Mood disorder: Status: Acute Assessment and plan: He was agitated, aggresive towards nurses, and causing self harm again this morning. We again did use 1mg lorazepam for his own safety and that of the staff. I evaluated him before and after the event and he has again stabilized. After discussion with daughter, will remove zimmerman and monitor lines if he wakes up and is more agitated again, focus should be on comfort. Continue outpatient therapy with mirtazipine. (9) Renal insufficiency: Status: Chronic Assessment and plan: #Initially considered acute, but last Cr was 3 years ago. Has been stable so this is apparently chronic - Suspected pre-renal azotemia on admission but did not improve with hydration. - Zimmerman placed, no clear diuresis to suggest bladder outlet obstruction. - no obstruction or renal disease to explain on non-contrast CT - some proteinuria but not nephrotic level as above. 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 Consider addressing risk factors prior to discharge. (11) DVT prophylaxis: Status: Acute Assessment and plan: enoxaparin Subjective Subjective Interval history since last seen: Pt seen and examined in the am. Pt still with significant confusion and hostility Exam Narrative Exam Narrative: pt refused Objective Last Vital Signs Temp 36.3 C L 01/08/25 22:36 Pulse 52 L 01/08/25 23:00 Resp 19 01/08/25 23:00 BP 107/42 L 01/08/25 22:01 Pulse Ox 95 01/08/25 23:00 Time Spent with Patient Time Spent with Patient: <25 minutes Time was spent: preparing to see the patient(eg.review tests), obtaining and/or reviewing separately otained hiistory, ordering medications,tests, procedures, referring, communicating with other health senior care provider, indepentently interpreting results, counseling the patient and care coordination
--- NOTE | 2025-01-09 14:39 | W.PALPGNOTE ---
Date of service: 01/09/25 Time of Service: 14:19 Assessment and Plan Assessment and plan (1) Anasarca: Status: Acute (2) Cystic mass of pancreas: Status: Acute (3) Hypoxemia: Status: Acute (4) Pericardial effusion without cardiac tamponade: Status: Acute Assessment and plan: (5) BPH (benign prostatic hyperplasia): Status: Chronic (6) Hypernatremia: Status: Acute (7) Venous stasis dermatitis of both lower extremities: Status: Acute (8) Mood disorder: Status: Acute (9) Renal insufficiency: Status: Chronic (10) Lacunar cerebrovascular accident (CVA): (11) Palliative care patient: Status: Acute Assessment and plan: Kt is an 89 year old man who is currently hospitalized with pericardial effusion, pulmonary effusion, anasarca, ascites, renal insufficiency, venous stasis dermatitis of legs. There is note made of masses on pancreas on imaging, concerning for possible cancer. He has a long Hx of mental health issues. He was initially awake and alert and engaging in conversation but he has had outbursts of agitation and aggressive behavior the last 2 days. He has required lorazepam, which lead to sedation. His daughter, Merced lives with him and has been able to provide Hx and help guide care. Palliative was consulted to discuss goals of care. He was able to engage to some extent in the visit today. He was able to verbalize that he is having pain all over and wants medication for the pain. He wants Merced to make decisions for him. He does not want his brother to make decisions for him. Merced explains that he has a good relationship with his brother. He does not have AD/HCA form/DPOA, etc. In this case, his daughter can act as a surrogate decision maker for him as it is known that they have lived together and she has been his caregiver for over 30 years. Merced clearly understands that he is dying and she wants him to be kept comfortable. She is in agreement with placing a fentanyl patch for pain- titrate as needed. PRN morphine for breakthrough pain. He has been transitioned to TRANSPORTATION PLANNING ENGINEER at this point. Merced plans to visit tomorrow. Palliative will continue to follow. Subjective Subjective Interval history since last seen: Kt was seen in his hospital room. He appeared to be sleeping but answered some questions with brief responses. He appeared restless. When questioned if he is in pain, he answered, yes. When questioned where, he states, all over. When questioned if he feels he needs medication for pain, he states, yes. When asked who he wants to make decisions for him if he is unable to do so, he did not answer. When asked if he wants Merced to make decisions for him if he cannot, he states, yes. When questioned if he would want his brother to make decisions for him, he states, no. He appears to have increased WOB while laying in bed. When questioned if it feels hard to breathe, he states, yes. Spoke to Merced, daughter, she has been living with him for 34 years and has been his floater operator for that time. He was saying he was in pain when she was visiting yesterday. She felt the zimmerman was bothering him. She does not want him to have a zimmerman catheter. Discussed getting him more comfortable then discontinuing the zimmerman if it appears to be bothering him. She is very clear that she wants him to be comfortable. She states, I know he is dying, I do not want him to be in pain! She agrees with fentanyl patch. She wants to limit tubes/lines. She feels tubes/lines will agitate him more. Today is day #3 with nothing by mouth, prior to this he had very limited intake for a few days. He does not have any documentation of HCA/DPOA for healthcare, advanced directives. Thus, his daughter can act as a surrogate decision maker for him. PER [place] ETHICS [employer]WORK: When patients have been deemed to lack capacity, we look to surrogate decision-makers?? their?health care agent,?guardian,?or person(s) who knows them best?for medical decisions. PER [place] STATUTES: ? 9710. Consent for hospice care (a) A family member of a patient or a person with a known close relationship to the patient may elect hospice care on behalf of the patient if the patient does not have an agent or guardian or the patient?s agent or guardian, or both, if applicable, are unavailable. Decisions made by the family member or person with a known close relationship shall protect the patient?s own wishes in the same manner as decisions made by an agent as described in subsection 9711(d) of this title. Exam Narrative Exam Narrative: General: chronically ill appearing, elderly man, laying in the hospital bed. He opened his eyes briefly. He was completely naked and would not allow for a sheet to be placed on him. He answered questions with brief responses. HEENT: atraumatic, mm dry. Respiratory: appears to have increased WOB at rest. +respiratory secretions noted. GI: abd appears softly distended : zimmerman in place, urine with sediment draining, +hematuria. Ext: moving extremities around in bed, venous stasis changes noted on BLEs. Skin is wrinkled on legs. Objective Last Vital Signs Temp 36.3 C L 01/08/25 22:36 Pulse 52 L 01/08/25 23:00 Resp 19 01/08/25 23:00 BP 107/42 L 01/08/25 22:01 Pulse Ox 95 01/08/25 23:00
[2025-01-09] MEDS: MORPHine 2 MG/ML SYR 1 MG IM ×2 (15:55→21:46)
[2025-01-09] MEDS: fentaNYL 12 MCG PATCH TD (16:35)
[2025-01-09] MEDS: Scopolamine 1 MG/3 DAYS PATCH TD (16:36)
[2025-01-09] MEDS: Acetaminophen 325 MG TAB PO (20:58)
[2025-01-09] MEDS: Mirtazapine 15 MG TAB 30 MG PO (20:59)
[2025-01-10] MEDS: MORPHine 2 MG/ML SYR 1 MG IM ×3 (02:55→13:08)
[2025-01-10] MEDS: LORazepam 2 MG/ML VIAL 0.5 MG IM ×3 (02:55→13:08)
--- NOTE | 2025-01-10 13:49 | W.PM.PROGNOT ---
Date of Service Date of service: 01/10/25 Time of Service: 13:49 Assessment and Plan Assessment and plan (1) Anasarca: Status: Acute Assessment and plan: Unclear etiology. This appears to have developed slowly based on reported history, very large pericardial effusion without tamponade, and chronic renal insuffiency He has some evidence of liver fibrosis, small liver and slightly large spleen, labs with high fibrosis-4 score but not c/w overt or decompensated cirrhosis to explain this. Some proteinuria but well below nephrotic level He attributes swelling to amlodipine, this is held, but this can't explain anasarca It's possible heart could have been primary cause with CHF causing the rest of the edema, though no heart failure on echo. He does have mod/severe but this shouldn't cause this. CT C/A/P not contrast, did show two pancreatic masses, cystic, but one exophytic, concerning for cancer. Pancreatic cancer or other malignancy is the most likely unifying diagnosis that would explain his presentation. Surgery consulted, and I had an in depth discussion with daughter and Dr. Muse today. Initially she wanted to sample fluid for diagnosis, but then decdied against it and to focus on comfort. She wants to make sure w treat pain, start with low dose hydromorphone prn. Consider COMPUTING MACHINE OPERATOR status, but wait to see if he will wake up enough to have a conversation about his own goals before we make this choice. 01/10/25 COMPUTING MACHINE OPERATOR status per my d/w palliative care (2) Cystic mass of pancreas: Status: Acute Assessment and plan: As above. (3) Hypoxemia: Status: Acute Assessment and plan: #88% on initial presenation. -Etiology unclear initially, pleural effusions and concern for pericardial effusion on repeat CXR at CT -Continuing to require O2 NC, continue to monitor. Some productive cough but no pneumnia on XR and CT on admission. (4) Pericardial effusion without cardiac tamponade: Status: Acute Assessment and plan: Initial hypotension felt to be hypovolemia and responded to fluids, but I am concerned hypovolemia also could be restrictive physiology from pericardial effusion responding to increased preload. Echo showed large effusion with some effect on right ventricle but no overt tamponade. Continue to obvserve closely, avoid diureis for now. (5) BPH (benign prostatic hyperplasia): Status: Chronic Assessment and plan: #Required coud? for Zimmerman placement. -Urinary retention with obstructive component suspected but not clearly documented as above -Suspect hematuria secondary to traumatic instrumentation required for Zimmerman placement, now clear visually. 01/10/25 zimmerman removed yesterday (6) Hypernatremia: Status: Acute Assessment and plan: appears he didn't have access to fluids recently. Stopped NS. He is drinking, continue oral fluids ad gurinder. (7) Venous stasis dermatitis of both lower extremities: Status: Acute Assessment and plan: wound care, no change (8) Mood disorder: Status: Acute Assessment and plan: He was agitated, aggresive towards nurses, and causing self harm again this morning. We again did use 1mg lorazepam for his own safety and that of the staff. I evaluated him before and after the event and he has again stabilized. After discussion with daughter, will remove zimmerman and monitor lines if he wakes up and is more agitated again, focus should be on comfort. Continue outpatient therapy with mirtazipine. (9) Renal insufficiency: Status: Chronic Assessment and plan: #Initially considered acute, but last Cr was 3 years ago. Has been stable so this is apparently chronic - Suspected pre-renal azotemia on admission but did not improve with hydration. - Zimmerman placed, no clear diuresis to suggest bladder outlet obstruction. - no obstruction or renal disease to explain on non-contrast CT - some proteinuria but not nephrotic level as above. 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 Consider addressing risk factors prior to discharge. (11) DVT prophylaxis: Status: Acute Assessment and plan: enoxaparin Subjective Subjective Interval history since last seen: Pt seen and examined. Resting comfortably this am Exam Narrative Exam Narrative: HEENT-NCAT RES-NO DISTRESS IN BRIEFS APPEARS HIS STATED AGE Objective Last Vital Signs Temp 36.3 C L 01/08/25 22:36 Pulse 52 L 01/08/25 23:00 Resp 19 01/08/25 23:00 BP 107/42 L 01/08/25 22:01 Pulse Ox 95 01/08/25 23:00 Time Spent with Patient Time Spent with Patient: 25-34 minutes Time was spent: preparing to see the patient(eg.review tests), obtaining and/or reviewing separately otained hiistory, ordering medications,tests, procedures, referring, communicating with other health aged or disabled care worker, indepentently interpreting results, counseling the patient and care coordination
[2025-01-10] MEDS: Haloperidol 5 MG/ML VIAL 2 MG IM (21:44)
[2025-01-10] MEDS: LORazepam 2 MG/ML VIAL 0.5 MG IM/IV (21:44)
[2025-01-10] MEDS: HYDROmorphone 2 MG/ML SYR IM (22:19)
--- NOTE | 2025-01-11 12:33 | W.PM.PROGNOT ---
Date of Service Date of service: 01/11/25 Time of Service: 12:33 Assessment and Plan Assessment and plan (1) Anasarca: Status: Acute Assessment and plan: Unclear etiology. This appears to have developed slowly based on reported history, very large pericardial effusion without tamponade, and chronic renal insuffiency He has some evidence of liver fibrosis, small liver and slightly large spleen, labs with high fibrosis-4 score but not c/w overt or decompensated cirrhosis to explain this. Some proteinuria but well below nephrotic level He attributes swelling to amlodipine, this is held, but this can't explain anasarca It's possible heart could have been primary cause with CHF causing the rest of the edema, though no heart failure on echo. He does have mod/severe but this shouldn't cause this. CT C/A/P not contrast, did show two pancreatic masses, cystic, but one exophytic, concerning for cancer. Pancreatic cancer or other malignancy is the most likely unifying diagnosis that would explain his presentation. Surgery consulted, and I had an in depth discussion with daughter and Dr. Muse today. Initially she wanted to sample fluid for diagnosis, but then decdied against it and to focus on comfort. She wants to make sure w treat pain, start with low dose hydromorphone prn. Consider ASSISTANT PROFESSOR OF THEATER status, but wait to see if he will wake up enough to have a conversation about his own goals before we make this choice. 01/10/25 ASSISTANT PROFESSOR OF THEATER status per my d/w palliative care 01/11/25 see above (2) Cystic mass of pancreas: Status: Acute Assessment and plan: As above. (3) Hypoxemia: Status: Acute Assessment and plan: #88% on initial presenation. -Etiology unclear initially, pleural effusions and concern for pericardial effusion on repeat CXR at CT -Continuing to require O2 NC, continue to monitor. Some productive cough but no pneumnia on XR and CT on admission. (4) Pericardial effusion without cardiac tamponade: Status: Acute Assessment and plan: Initial hypotension felt to be hypovolemia and responded to fluids, but I am concerned hypovolemia also could be restrictive physiology from pericardial effusion responding to increased preload. Echo showed large effusion with some effect on right ventricle but no overt tamponade. Continue to obvserve closely, avoid diureis for now. (5) BPH (benign prostatic hyperplasia): Status: Chronic Assessment and plan: #Required coud? for Zimmerman placement. -Urinary retention with obstructive component suspected but not clearly documented as above -Suspect hematuria secondary to traumatic instrumentation required for Zimmerman placement, now clear visually. 01/10/25 zimmerman removed yesterday (6) Hypernatremia: Status: Acute Assessment and plan: appears he didn't have access to fluids recently. Stopped NS. He is drinking, continue oral fluids ad gurinder. (7) Venous stasis dermatitis of both lower extremities: Status: Acute Assessment and plan: wound care, no change (8) Mood disorder: Status: Acute Assessment and plan: He was agitated, aggresive towards nurses, and causing self harm again this morning. We again did use 1mg lorazepam for his own safety and that of the staff. I evaluated him before and after the event and he has again stabilized. After discussion with daughter, will remove zimmerman and monitor lines if he wakes up and is more agitated again, focus should be on comfort. Continue outpatient therapy with mirtazipine. (9) Renal insufficiency: Status: Chronic Assessment and plan: #Initially considered acute, but last Cr was 3 years ago. Has been stable so this is apparently chronic - Suspected pre-renal azotemia on admission but did not improve with hydration. - Zimmerman placed, no clear diuresis to suggest bladder outlet obstruction. - no obstruction or renal disease to explain on non-contrast CT - some proteinuria but not nephrotic level as above. 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 Consider addressing risk factors prior to discharge. (11) DVT prophylaxis: Status: Acute Assessment and plan: enoxaparin Subjective Subjective Interval history since last seen: Pt does not respond to verbal stimuli. Exam Narrative Exam Narrative: HEENT-NCAT RES-Bilat wheeze IN BRIEFS APPEARS HIS STATED AGE Objective Last Vital Signs Temp 36.3 C L 01/08/25 22:36 Pulse 52 L 01/08/25 23:00 Resp 19 01/08/25 23:00 BP 107/42 L 01/08/25 22:01 Pulse Ox 95 01/08/25 23:00 Time Spent with Patient Time Spent with Patient: <25 minutes Time was spent: preparing to see the patient(eg.review tests), obtaining and/or reviewing separately otained hiistory, ordering medications,tests, procedures, referring, communicating with other health intensive care medicine specialist, indepentently interpreting results, counseling the patient and care coordination
[2025-01-11 16:09] VITALS: RESP 20
--- NOTE | 2025-01-11 16:57 | W.PM.DDS ---
Date of service: 01/11/25 Time of Service: 16:55 Discharge Plan Disposition Patient Disposition: Condition: Improving Discharge Details Reason For Visit: BEA, Hypothermia, Hypotension, Hypovolemia Admit Date/Time: 01/05/25 21:46 Admit Provider: Yuriy Wolfe Attending Provider: Yuriy Wolfe Primary Care Provider: Miguelito Conteh Hospital Course Hospital Course: PT was admitted with pleural effusions bilaterally as well as a pericardial effusion. Work up during the hospital stay found what most likely was malignant pancreatic masses. Conversations with the daughter in regards to prognosis and diagnosis were had and a decision to not pursue diagnostic interventions were made. The pt was started on medications for comfort care and 1654 on 01/11/25. Home Meds and New Rx's Prescriptions: Continued amlodipine 10 mg tablet 10 mg PO DAILY Qty: 90 3RF mirtazapine 30 mg tablet 30 mg PO HS Qty: 90 3RF Rx Instructions: fill for #90 every 3 months Discharge Data Cause of : Respiratory failure Discharge Date/Time-TO BE ENTERED AT DEPARTURE: 01/11/25 17:01 Discharge Physician: Migel Chapa Discharge Sum: Prov Provider Consults: 01/05/25 22:57 Care Management Consult [CONS] Routine Consulting Provider: Care Management Consultation Status:: Follow-up needed Clarification:: Manage/follow per spec. Reason for consult:: Pt found in what sounds like an unsafe living environment 01/07/25 08:21 Palliative Care Consult [CONS] Routine Consultation Status:: Follow-up needed Clarification:: Manage/follow per spec. Reason for consult:: 89 yo M with a history of depression, found in his waste with non-specific malaise, hypothermia, initial hypotension. Has anasarca with unclear etiology. 01/07/25 08:27 Surgical Consult [CONS] Routine Consulting Provider: Enrique Joel Consultation Status:: Contact made by Clarification:: Manage/follow per spec. Reason for consult:: 89 yo with anasarca of unclear etiology, hypoxic. Diagnostic/therapeutic throracentesis? 01/07/25 12:29 Wound Care Consult [CONS] Routine Consultation Status:: Follow-up needed Clarification:: One time opinion Reason for consult:: Bilat lower extremity venous stasis dermatitis w/ weeping; left leg with purulent drainage. 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 Additional Data Confirmation of as documented by pronouncing clinician: no pulse, no respirations, no heart sounds and pupils fixed and dilated Family: contacted Attending Physician: Nik Thibodeaux Was code activated?: No
== END 2025-01-11 17:01 | disposition expired | DRG 435 ==
LOC: ER 21:00 → MS 22:55 → ICU 01-06 19:07 → MS 01-09 06:21
PROVIDERS: Family Medicine; Admitting Provider Emergency Medicine; Emergency Provider Emergency Medicine Emergency Medical Services; PCP Family Medicine; Responsible Provider Hospitalist; Visit Provider Emergency Medicine
DX: C25.1 Malignant neoplasm of body of pancreas (principal); I63.81 Other cerebral infarction due to occlusion or stenosis of small artery; E87.0 Hyperosmolality and hypernatremia; N13.8 Other obstructive and reflux uropathy; R18.8 Other ascites; I31.39 Other pericardial effusion (noninflammatory); E86.1 Hypovolemia; T68.XXXA Hypothermia, initial encounter; R09.02 Hypoxemia; Z86.73 Personal history of transient ischemic attack (TIA), and cerebral infarction without residual deficits; Z51.5 Encounter for palliative care; Z66 Do not resuscitate; N40.1 Benign prostatic hyperplasia with lower urinary tract symptoms; I87.2 Venous insufficiency (chronic) (peripheral); F32.A Depression, unspecified; F39 Unspecified mood [affective] disorder; I95.89 Other hypotension; R31.9 Hematuria, unspecified; K74.60 Unspecified cirrhosis of liver; N18.9 Chronic kidney disease, unspecified; I12.9 Hypertensive chronic kidney disease with stage 1 through stage 4 chronic kidney disease, or unspecified chronic kidney disease; I35.0 Nonrheumatic aortic (valve) stenosis; R45.1 Restlessness and agitation
CPT/HCPCS: 36410; 00123; 36415; 71250; 80048; 80053; 82550; 84145; 85027; 87040; 87637; 93005; 96360; 96361; 99223; 99232; 99285; 70450; 71045; 71046; 74176; 81003; 81015; 82565; 83605; 84156; 84484; 85025; 85610; 93010; 93306; 99231; 99233; J1171; J1630; J1650; J2060; J2270